=== PATIENT | female | born 1960 | race Caucasian/White ===

== ENCOUNTER 2016-07-19 00:48 | Emergency (ER) | payer MEDICARE ==
--- NOTE | 2016-07-19 01:16 | Emergency Department Record ---
History of Present Illness - General Chief Complaint: Knee injury Stated Complaint: RIGHT KNEE INJURY Time Seen by Provider: 07/19/16 01:10 Source: Patient, Family Mode of Arrival: Wheelchair - History of Present Illness Initial Comments: 55 yo female presents with a knee injury. She slipped in the tub about one hour ago landing on her right knee. She lacerated the front of the knee. She denies any other injuries. No head injury or pain. No neck pain or injury. She admits to frequent alcohol consumption and has fallen in the past. MD Complaint: Knee injury Onset/Timin -: Minutes(s) Injury: Knee: Right Type of Injury: Laceration Place: Home Severity: Mild Severity scale (1-10): 5 Improves With: Nothing Worsens With: Nothing Context: Fall Treatments Prior to Arrival: Bandage - Related Data Allergies Allergy/AdvReac Type Severity Reaction Status Date / Time amoxicillin AdvReac Mild YEAST Verified 07/19/16 00:56 INFETION Sulfa (Sulfonamide AdvReac Mild ABDOMINAL Verified 07/19/16 00:56 Antibiotics) CRAMPS Travel Screening - Travel/Exposure Within Last 30 Days Have you traveled within the last 30 days?: No - Travel/Exposure Within Last Year Have you traveled outside the [place] in the last year?: No - Additonal Travel Details Have you been exposed to anyone with a communicable illness?: No - Travel Symptoms Symptom Screening: None Review of Systems Constitutional: Denies: Chills, Fever, Malaise, Weakness Eyes: Denies: Eye discharge ENT: Denies: Congestion Respiratory: Denies: Cough Cardiovascular: Denies: Chest pain, Palpitations, Syncope Endocrine: Denies: Fatigue Gastrointestinal: Denies: Abdominal pain, Diarrhea, Nausea, Vomiting Genitourinary: Denies: Dysuria Musculoskeletal: Reports: Arthralgia. Denies: Back pain, Joint swelling, Myalgia Skin: Reports: Other (Laceration). Denies: Bruising, Change in color, Rash Neurological: Denies: Headache Psychiatric: Denies: Anxiety Hematological/Lymphatic: Denies: Blood Clots, Easy bleeding, Easy bruising, Swollen glands Past Medical History - SOCIAL HISTORY Smoking Status: Current some day smoker Alcohol Use: Heavy Alcohol Use Comment: HALF A FIFTH DAILY Drug Use: Occassional Drug Use Detail:: Marijuana - RESPIRATORY Hx Respiratory Disorders: Yes Hx Bronchitis: Yes - CARDIOVASCULAR Hx Cardio Disorders: No - NEURO Hx Neuro Disorders: No - GI Hx GI Disorders: No - Hx Genitourinary Disorders: No - ENDOCRINE Hx Endocrine Disorders: Yes Hx Thyroid Disease: Yes (hypo) - MUSCULOSKELETAL Hx Musculoskeletal Disorders: Yes Hx Musculoskeletal Disease: Yes (sharco naya tooth) - PSYCH Hx Psych Problems: No - HEMATOLOGY/ONCOLOGY Hx Hematology/Oncology Disorders: No Family Medical History Any Significant Family History?: No Physical Exam - General General Appearance: Alert, Oriented x3, Cooperative, No acute distress Limitations: No limitations - Head Head exam: Atraumatic, Normocephalic, Normal inspection Head exam detail: negative: Abrasion, Contusion, Hematoma, Laceration - Eye Eye exam: Normal appearance. negative: Conjunctival injection, Periorbital swelling, Scleral icterus - ENT ENT exam: Normal exam, Mucous membranes moist, Normal external ear exam, Normal orophraynx Ear exam: Normal external inspection. negative: External canal tenderness Nasal Exam: Normal inspection. negative: Discharge, Sinus tenderness Mouth exam: Normal external inspection, Tongue normal Teeth exam: Normal inspection. negative: Dental caries Throat exam: Normal inspection. negative: Tonsillar erythema, Tonsillar exudate - Neck Neck exam: Normal inspection, Full ROM. negative: Tenderness - Respiratory Respiratory exam: Normal lung sounds bilaterally. negative: Respiratory distress - Cardiovascular Cardiovascular Exam: Regular rate, Normal rhythm, Normal heart sounds - GI/Abdominal GI/Abdominal exam: Soft. negative: Guarding, Hypoactive bowel sounds, Rebound, Rigid, Tenderness - Rectal Rectal exam: Deferred - exam: Deferred - Extremities Extremities exam: Full ROM, Normal capillary refill, Tenderness. negative: Normal inspection, Joint swelling, Pedal edema Image of Full Body: 1 - right knee laceration, 2cm, no visible FB, patella midline and full ROM, no joint tenderness. - Neurological Neurological exam: Alert, Normal gait, Oriented X3 - Psychiatric Psychiatric exam: Normal affect, Normal mood. negative: Agitated, Anxious - Skin Skin exam: Dry, Normal color, Warm. negative: Intact Type of lesion: Laceration (2cm knee laceration) Course Vital Signs 07/19/16 00:57 Temperature 97.6 F Pulse Rate 73 Respiratory 18 Rate Blood Pressure 91/54 Pulse Ox 95 - Reevaluation(s) Reevaluation #1: The knee XR was reviewed No acute fracture or dislocation noted NO FB noted PROCEDURE: Betadine Prep Irrigation with NS copiously Lidocaine with Epi 1% 2ml local Irrigated again. superficial flap type wound. No FB, no bone or tendon visible Ethilon 4-0 suture 5 sutures placed Tolerated Well 07/19/16 01:53 Disposition Disposition: Discharge Clinical Impression: Laceration of Knee Qualifiers: Encounter type: initial encounter Laterality: right Qualified Code(s): S81.011A - Laceration without foreign body, right knee, initial encounter Disposition: Home, Self-Care Condition: (1) Good Instructions: Suture Care (ED), Laceration (ED) Additional Instructions: Return immediately if you have fever, redness, pus, pain or concerns Suture removal in 10 days in the ER or your doctors office Forms: Patient Portal Access Time of Disposition: 01:56
--- NOTE | 2016-07-21 15:05 | RADIOLOGY REPORT ---
EXAM: KNEE, RIGHT 4 VIEWS HISTORY: FALL WITH ANTERIOR LACERATION. TECHNIQUE: AP, oblique, lateral, and tunnel views of the right knee are obtained. COMPARISON: None. ENCOUNTER: Initial. FINDINGS: There is borderline to mild diffuse osteopenia. No acute fracture, dislocation, or destructive bone lesion is seen. There are early tricompartmental degenerative changes. No definite joint effusion. Mild prepatellar soft tissue swelling. No radiopaque foreign body. IMPRESSION: 1. BORDERLINE TO MILD OSTEOPENIA. NO ACUTE FRACTURE OR DISLOCATION. 2. MILD TRICOMPARTMENTAL DEGENERATIVE CHANGES. 3. MILD PREPATELLAR SOFT TISSUE SWELLING. JOB NUMBER: [id number] MTDD
== END 2016-07-19 02:02 | disposition home or self-care (01) ==
LOC: ER 00:48
DX: S81.011A Laceration without foreign body, right knee, initial encounter (principal); W18.2XXA Fall in (into) shower or empty bathtub, initial encounter; Y92.009 Unspecified place in unspecified non-institutional (private) residence as the place of occurrence of the external cause; Y92.002 Bathroom of unspecified non-institutional (private) residence as the place of occurrence of the external cause; Z91.81 History of falling
CPT/HCPCS: 12001; 99283; 99284

== ENCOUNTER 2017-01-30 12:57 | Inpatient (IN) | payer MEDICARE ==
--- NOTE | 2017-01-30 14:48 | Emergency Department Record ---
History of Present Illness - General Chief Complaint: Abdominal Pain Stated Complaint: ABDOMEN PAIN WITH LOWER BACK AND SIDE PAIN Time Seen by Provider: 01/30/17 13:51 Mode of Arrival: Ambulatory - History of Present Illness Initial Comments: 4 days ago vomiting ,No hematemsis and abdominal pain with eating. History of alcohol abuse and last BM formed. No alcohol for 2.5 days. Drinks one pint per day. Onset/Timin -: Days(s) Location: Diffuse Radiation: Back Severity: Moderate Quality: Aching Consistency: Constant Improves With: Nothing Worsens With: Nothing Context: Other Associated Symptoms: Denies other symptoms Treatments Prior to Arrival: NSAIDs - Related Data Allergies Allergy/AdvReac Type Severity Reaction Status Date / Time amoxicillin AdvReac Mild YEAST Verified 07/19/16 00:56 INFETION Sulfa (Sulfonamide AdvReac Mild ABDOMINAL Verified 07/19/16 00:56 Antibiotics) CRAMPS Travel Screening - Travel/Exposure Within Last 30 Days Have you traveled within the last 30 days?: No - Travel/Exposure Within Last Year Have you traveled outside the [place] in the last year?: No - Additonal Travel Details Have you been exposed to anyone with a communicable illness?: No - Travel Symptoms Symptom Screening: None Review of Systems Reviewed: No additional complaints except as noted below Constitutional: Reports: As per HPI. Denies: Chills, Fever, Malaise, Night sweats, Weakness, Weight change Eyes: Reports: As per HPI. Denies: Eye discharge, Eye pain, Photophobia, Vision change ENT: Reports: As per HPI. Denies: Congestion, Dental pain, Ear pain, Epistaxis , Hearing loss, Throat pain Respiratory: Reports: As per HPI. Denies: Cough, Dyspnea, Hemoptysis, Stridor, Wheezes Cardiovascular: Reports: As per HPI. Denies: Arrhythmia, Chest pain, Dyspnea on exertion, Edema, Murmurs, Orthopnea, Palpitations, Paroxysmal nocturnal dyspnea, Rheumatic Fever, Syncope Endocrine: Reports: As per HPI. Denies: Fatigue, Heat or cold intolerance, Polydipsia, Polyuria Gastrointestinal: Reports: As per HPI, Abdominal pain, Vomiting. Denies: Constipation, Diarrhea, Hematemesis, Hematochezia, Melena, Nausea Genitourinary: Reports: As per HPI. Denies: Abnormal menses, Discharge, Dyspareunia, Dysuria, Frequency, Hematuria, Incontinence, Retention, Urgency Musculoskeletal: Reports: As per HPI. Denies: Arthralgia, Back pain, Gout, Joint swelling, Myalgia, Neck pain Skin: Reports: As per HPI. Denies: Bruising, Change in color, Change in hair/ nails, Lesions, Pruritus, Rash Neurological: Reports: As per HPI. Denies: Abnormal gait, Confusion, Headache, Numbness, Paresthesias, Seizure, Tingling, Tremors, Vertigo, Weakness Psychiatric: Reports: As per HPI. Denies: Anxiety, Auditory hallucinations, Depression, Homicidal thoughts, Suicidal thoughts, Visual hallucinations Hematological/Lymphatic: Reports: As per HPI. Denies: Anemia, Blood Clots, Easy bleeding, Easy bruising, Swollen glands Past Medical History - SOCIAL HISTORY Smoking Status: Current some day smoker Alcohol Use: Heavy Alcohol Use Comment: pint of vodka daily Drug Use: Occasional Drug Use Detail:: Marijuana - RESPIRATORY Hx Respiratory Disorders: Yes Hx Bronchitis: Yes - CARDIOVASCULAR Hx Cardio Disorders: No - NEURO Hx Neuro Disorders: No - GI Hx GI Disorders: No - Hx Genitourinary Disorders: No - ENDOCRINE Hx Endocrine Disorders: Yes Hx Thyroid Disease: Yes (hypo) - MUSCULOSKELETAL Hx Musculoskeletal Disorders: Yes Hx Musculoskeletal Disease: Yes (sharco naya tooth) - PSYCH Hx Psych Problems: No - HEMATOLOGY/ONCOLOGY Hx Hematology/Oncology Disorders: No Family Medical History Any Significant Family History?: No Physical Exam - General General Appearance: Alert, Oriented x3, Cooperative, No acute distress - Head Head exam: Normal inspection - Eye Eye exam: Normal appearance, PERRL Pupils: Normal accommodation - ENT ENT exam: Normal exam, Mucous membranes moist, Normal external ear exam, Normal orophraynx, TM's normal bilaterally Ear exam: Normal external inspection. negative: External canal tenderness Nasal Exam: Normal inspection. negative: Discharge, Sinus tenderness Mouth exam: Normal external inspection, Tongue normal Teeth exam: Normal inspection. negative: Dental caries Throat exam: Normal inspection. negative: Tonsillar erythema, Tonsillar exudate - Neck Neck exam: Normal inspection, Full ROM. negative: Tenderness - Respiratory Respiratory exam: Normal lung sounds bilaterally. negative: Respiratory distress - Cardiovascular Cardiovascular Exam: Regular rate, Normal rhythm, Normal heart sounds - GI/Abdominal GI/Abdominal exam: Soft, Normal bowel sounds, Tenderness (generalized abd pain soft abd.). negative: Guarding, Rebound, Rigid - Rectal Rectal exam: Deferred - exam: Deferred - Extremities Extremities exam: Normal inspection, Full ROM, Normal capillary refill. negative: Tenderness - Back Back exam: Reports: Normal inspection, Full ROM. Denies: Muscle spasm, Rash noted, Tenderness - Neurological Neurological exam: Alert, Normal gait, Oriented X3, Reflexes normal - Psychiatric Psychiatric exam: Normal affect, Normal mood - Skin Skin exam: Dry, Intact, Normal color, Warm Course Vital Signs 01/30/17 01/30/17 13:13 14:04 Temperature 99.0 F 99.0 F Pulse Rate [ 111 H Pulse Ox Probe] Respiratory 14 14 Rate Blood Pressure 119/80 [Left Arm] Pulse Ox 98 98 - Reevaluation(s) Reevaluation #1: discussed case with Nathan and will admit 01/30/17 17:15 Medical Decision Making - Lab Data Result diagrams: 01/30/17 14:40 01/30/17 14:40 Disposition Clinical Impression: Hypokalemia, Alcohol abuse Pancreatitis Qualifiers: Chronicity: acute Pancreatitis type: alcohol induced Acute pancreatitis complication: unspecified Qualified Code(s): K85.20 - Alcohol induced acute pancreatitis without necrosis or infection Decision to Admit: Admit from ER Forms: Patient Portal Access Time of Disposition: 17:20 Quality - Quality Measures Quality Measures: N/A - Blood Pressure Screening Blood Pressure Classification: Pre-Hypertensive BP Reading Systolic Measurement: 119 Diastolic Measurement: 85 Screening for High Blood Pressure: < Pre-Hypertensive BP, F/U Documented > [ [id number]] Pre-Hypertensive Follow-up Interventions: Referral to alternative/primary care provider.
[2017-01-30 15:33] LABS: BASO % 0.4 % (0-6); EOS % 2.9 % (0-6); GRAN % 68.7 % (47-80); HEMATOCRIT 33.3 % (35.0-47.0); HEMOGLOBIN 11.5 gm/dl (11.6-16.0); LYMPH % 13.3 % (16-45); MEAN CORPUSCULAR HGB CONC 34.5 g/dl (32-36); MEAN PLATELET VOLUME 11.5 fl (7.4-10.4); MONO % 14.7 % (0-9); PLATELET COUNT 115 K/uL (130-400); RED BLOOD COUNT 2.69 M/uL (3.80-5.40); WHITE BLOOD COUNT W/O DIFF 5.6 K/uL (4.2-12.2)
[2017-01-30 15:43] LABS: MEAN CORPUSCULAR HEMOGLOBIN 42.7 pg (27-33)
[2017-01-30 15:48] LABS: URINE APPEARANCE CLEAR; URINE BILIRUBIN SMALL (NEGATIVE); URINE BLOOD NEGATIVE (NEGATIVE); URINE GLUCOSE (UA) NEGATIVE (NEGATIVE); URINE KETONE TRACE (NEGATIVE); URINE LEUKOCYTE ESTERASE NEGATIVE (NEGATIVE); URINE NITRITE NEGATIVE (NEGATIVE); URINE PROTEIN TRACE (NEGATIVE)
[2017-01-30 15:50] LABS: ALKALINE PHOSPHATASE 122 U/L (38-126); ALT/SGPT 46 U/L (9-52); ANION GAP 12.8 (7-16); AST/SGOT 73 U/L (14-36); BILIRUBIN,TOTAL 1.27 mg/dL (0.2-1.3); BLOOD UREA NITROGEN 9 mg/dL (7-17); CARBON DIOXIDE 29.2 mmol/L (22-30); CREATININE 0.4 mg/dL (0.52-1.04); EST GLOMERULAR FILTRATION RATE > 60 ml/min; GLUCOSE,RANDOM 114 mg/dL (70-110); INR 1.08; MEAN CELL VOLUME 123.8 fl (81-97); PROTHROMBIN TIME (PATIENT) 11.7 SECONDS (9.5-12.1); TOTAL PROTEIN 7.2 gm/dL (6.3-8.2)
[2017-01-30 15:53] LABS: URINE COLOR DARK YELLOW
[2017-01-30 16:29] LABS: LIPASE 4680 U/L (23-300)
[2017-01-30] MEDS ORDERED: POTASSIUM CHLORIDE 20 MEQ TABLET PO ONE (17:03)
[2017-01-30] MEDS ORDERED: 0.9 % SODIUM CHLORIDE 1000ML 1,000 ML IV SCH (17:15)
[2017-01-30] MEDS ORDERED: HYDROMORPHONE HCL 1 MG/ML CPJ IVP ONE (17:19)
[2017-01-30] MEDS: HYDROMORPHONE HCL 1 MG/ML CPJ IVP PRN (21:59)
[2017-01-30] MEDS: POTASSIUM CHLORIDE 20 MEQ TABLET PO SCH (22:01)
[2017-01-30] MEDS ORDERED: DIPHENHYDRAMINE HCL 25 MG CAPSULE PO ONE (23:28)
[2017-01-30] MEDS: 0.9 % SODIUM CHLORIDE 1000ML 1,000 ML IV PRN (23:40)
[2017-01-31] MEDS ORDERED: PNEUM 23-VAL ADULT IM ONE (00:21)
[2017-01-31 06:22] LABS: ANION GAP 8.5 (7-16); BLOOD UREA NITROGEN 9 mg/dL (7-17); CARBON DIOXIDE 25.5 mmol/L (22-30); CREATININE 0.4 mg/dL (0.52-1.04); EST GLOMERULAR FILTRATION RATE > 60 ml/min; GLUCOSE,RANDOM 103 mg/dL (70-110); LIPASE 1462 U/L (23-300)
[2017-01-31] MEDS: HYDROMORPHONE HCL 1 MG/ML CPJ IVP PRN (06:22)
[2017-01-31] MEDS: 0.9 % SODIUM CHLORIDE 1000ML 1,000 ML IV PRN ×3 (06:25→21:41)
--- NOTE | 2017-01-31 07:27 | CT SCAN REPORT ---
EXAM: CT SCAN OF THE ABDOMEN AND PELVIS HISTORY: PATIENT HAS GENERALIZED ABDOMINAL PAIN AND BLOATING. TECHNIQUE: Serial axial CT scan of the abdomen and pelvis was performed at 3.75 mm intervals from the dome of the diaphragm down to the pubic symphysis without use of intravenous or oral contrast. No comparison CT's are available. FINDINGS: The lung windows of the lung bases demonstrate no CT evidence of focal infiltrate or pleural effusion. Emphysematous changes are identified. The visualized heart size and contour is within normal limits. The liver demonstrates macronodular surface contour with diffuse fatty infiltration. These findings are consistent with cirrhosis. Clinical correlation is recommended. No focal hepatic lesions are identified. The spleen, adrenal glands, and gallbladder are unremarkable. The pancreas demonstrates moderate peripancreatic fat standing. There are punctate calcifications identified within the distal tail of the pancreas as well as the pancreatic head. These findings are consistent with acute on chronic pancreatitis. The bilateral kidneys demonstrate no CT evidence of hydronephrosis or hydroureter. No renal or ureteral calculi are noted. The contour and caliber of the noncontrast mid abdominal aorta is within normal limits. There is no CT evidence of retroperitoneal, pelvic or inguinal lymphadenopathy. The bowel gas pattern is nonspecific and nonobstructive. The appendix is clearly visualized and there is no CT evidence of appendicitis. There is no CT evidence of free intraperitoneal air or free intraperitoneal fluid. The urinary bladder is unremarkable. The uterus is unremarkable. Bone windows demonstrate no CT evidence of a fracture or dislocation of the visualized osseous structures. There is sclerosis of the superior aspect of the right femoral head without evidence of collapse. These findings are suspicious for avascular necrosis of the superior aspect of the right femoral head. If there is further clinical concern then MRI of the right hip can be obtained for further evaluation. IMPRESSION: 1. FINDINGS CONSISTENT WITH ACUTE ON CHRONIC MODERATE PANCREATITIS. 2. CIRRHOSIS WITH DIFFUSE HEPATIC STEATOSIS. NO SUSPICIOUS HEPATIC LESIONS ARE IDENTIFIED. 3. 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 IF THERE IS FURTHER CLINICAL CONCERN THEN MRI OF THE RIGHT HIP CAN BE OBTAINED FOR FURTHER EVALUATION. JOB NUMBER: [id number] MTDD
[2017-01-31] MEDS ORDERED: DIPHENHYDRAMINE HCL 25 MG CAPSULE PO ONE ×2 (07:29→10:30)
[2017-01-31] MEDS ORDERED: MORPHINE SULFATE 5 MG/ML PFS IVP PRN (07:32)
[2017-01-31] MEDS: POTASSIUM CHLORIDE 20 MEQ TABLET PO SCH ×2 (09:18→21:37)
[2017-01-31] MEDS: ENOXAPARIN 40 MG/0.4 ML SYR SC SCH (09:21)
[2017-01-31] MEDS: MORPHINE SULFATE 5 MG/ML PFS IVP PRN ×3 (10:22→21:38)
--- NOTE | 2017-01-31 11:25 | History & Physical ---
History of Present Illness - Date of Service Date of Service for History & Physical: 01/31/17 - History of Present Illness Admitting Diagnosis: acute pancreatitis. hypokalemia. alcohol abuse History of Present Illness: 56 y/o female with 4 day history of vomiting admitted for acute pancreatitis. Past medical history of current every day smoker, heavy alcohol use ( 1 pint 5 O 'clock vodka daily), bronchitis, hypothyroidism, Zdzgrlu-Wyabw-Jdhkk disease. Prior to arrival had 4 day history of nausea, vomiting and epigastric abdominal pain. Denied hematemesis, diarrhea, rectal bleeding. Quit drinking for 2 days which did not resolve her symptoms. Does report day 1 of alcohol abstinence she felt tachycardic and was shaky but has not had any withdrawal symptoms since. While in the ED VS stable with slight tachycardia. CBC with a macrocytic anemia , plt 115, normal WBC. Coag studies normal. Potassium 2.7 in ED Lipase 4680. AST 73. U/A trace protein, + ketones, small bilirubin. EKG ectopic atrial tachycardia prolonged QT interval, retrograde P wave, no acute changes from previous. CT abdomen/pelvis consistent with acute and chronic moderate pancreatitis, cirrhosis with diffuse hepatic steatosis, avascular necrosis of right femoral head. Laboratory Results WBC 5.6 K/uL (4.2-12.2) 01/30/17 14:40 RBC 2.69 M/uL (3.80-5.40) L 01/30/17 14:40 Hgb 11.5 gm/dl (11.6-16.0) L 01/30/17 14:40 Hct 33.3 % (35.0-47.0) L 01/30/17 14:40 MCV 123.8 fl (81-97) H 01/30/17 14:40 MCH 42.7 pg (27-33) H 01/30/17 14:40 MCHC 34.5 g/dl (32-36) 01/30/17 14:40 RDW 15.0 % (11.5-14.5) H 01/30/17 14:40 Plt Count 115 K/uL (130-400) L 01/30/17 14:40 MPV 11.5 fl (7.4-10.4) H 01/30/17 14:40 Gran % 68.7 % (47-80) 01/30/17 14:40 Lymphocytes % 13.3 % (16-45) L 01/30/17 14:40 Monocytes % 14.7 % (0-9) H 01/30/17 14:40 Eosinophils % 2.9 % (0-6) 01/30/17 14:40 Basophils % 0.4 % (0-6) 01/30/17 14:40 PT 11.7 SECONDS (9.5-12.1) 01/30/17 14:40 INR 1.08 01/30/17 14:40 Sodium 137 mmol/L (136-145) 01/31/17 06:05 Potassium 3.1 mmol/L (3.5-5.1) L 01/31/17 06:05 Chloride 103 mmol/L (98-107) 01/31/17 06:05 Carbon Dioxide 25.5 mmol/L (22-30) 01/31/17 06:05 Anion Gap 8.5 (7-16) 01/31/17 06:05 BUN 9 mg/dL (7-17) 01/31/17 06:05 Creatinine 0.4 mg/dL (0.52-1.04) L 01/31/17 06:05 Estimated GFR > 60 ml/min 01/31/17 06:05 Random Glucose 103 mg/dL (70-110) 01/31/17 06:05 Calcium 7.6 mg/dL (8.5-10.1) L 01/31/17 06:05 Total Bilirubin 1.27 mg/dL (0.2-1.3) 01/30/17 14:40 Direct Bilirubin 0.0 mg/dL (0-0.3) 01/30/17 14:40 AST 73 U/L (14-36) H 01/30/17 14:40 ALT 46 U/L (9-52) 01/30/17 14:40 Alkaline Phosphatase 122 U/L (38-126) 01/30/17 14:40 Total Protein 7.2 gm/dL (6.3-8.2) 01/30/17 14:40 Albumin 4.0 gm/dL (3.5-5.0) 01/30/17 14:40 Lipase 1462 U/L (23-300) H 01/31/17 06:05 Urine Color Dark yellow 01/30/17 14:40 Urine Appearance Clear 01/30/17 14:40 Urine pH 6.0 (5.0-8.0) 01/30/17 14:40 Ur Specific [place] 1.020 (1.002-1.030) 01/30/17 14:40 Urine Protein Trace (NEGATIVE) H 01/30/17 14:40 Urine Glucose (UA) Negative (NEGATIVE) 01/30/17 14:40 Urine Ketones Trace (NEGATIVE) H 01/30/17 14:40 Urine Blood Negative (NEGATIVE) 01/30/17 14:40 Urine Nitrite Negative (NEGATIVE) 01/30/17 14:40 Urine Bilirubin Small (NEGATIVE) H 01/30/17 14:40 Urine Urobilinogen 2.0 E.U./dL (0.20 - 1.00) H 01/30/17 14:40 Ur Leukocyte Esterase Negative (NEGATIVE) 01/30/17 14:40 Vital Signs - Last 24 Hrs Temp Pulse Pulse Resp BP BP Pulse Ox 01/31/17 09:08 99.5 F 86 16 91/59 90/62 96 01/31/17 09:00 86 16 01/31/17 06:00 99.5 F 91 H 18 91/59 98 01/31/17 01:58 98.8 F 90 18 93/72 95 01/30/17 22:00 99.5 F 98 H 18 97/63 96 01/30/17 19:23 16 01/30/17 18:08 109 H 20 105/80 97 01/30/17 18:00 98.9 F 101 H 16 113/70 98 01/30/17 15:39 115 H 18 119/85 97 01/30/17 14:04 99.0 F 14 98 01/30/17 13:13 99.0 F 111 H 14 119/80 98 01/31/17- resting in bed comfortably, denies nausea, tremors, diarrhea, agitation , anxiety. Does report still has LUQ abdominal pain but has significantly improved since admission. Reports has been itching with Dilaudid, Benadryl effective and pain control changed to Morphine Sulfate. Usually takes vitamin at home " when I remember". Reports is home on disability, lives alone and "ties one on and has a 1 person constitution party". Has not seen a PCP in > 5 years. PCP: none, is planning on applying to establish with Dr Mayorga after discharge Travel Screening - Travel/Exposure Within Last 30 Days Have you traveled within the last 30 days?: No - Travel/Exposure Within Last Year Have you traveled outside the [place] in the last year?: No - Additonal Travel Details Have you been exposed to anyone with a communicable illness?: No - Travel Symptoms Symptom Screening: None Review of Systems Constitutional: Reports: As per HPI. Denies: Chills, Fever, Malaise, Night sweats, Weakness, Weight change Eyes: Reports: As per HPI. Denies: Eye discharge, Eye pain, Photophobia, Vision change ENT: Reports: As per HPI. Denies: Congestion, Dental pain, Ear pain, Epistaxis , Hearing loss, Throat pain Respiratory: Reports: As per HPI. Denies: Cough, Dyspnea, Hemoptysis, Stridor, Wheezes Cardiovascular: Reports: As per HPI. Denies: Arrhythmia, Chest pain, Dyspnea on exertion, Edema, Murmurs, Orthopnea, Palpitations, Paroxysmal nocturnal dyspnea, Rheumatic Fever, Syncope Endocrine: Reports: As per HPI. Denies: Fatigue, Heat or cold intolerance, Polydipsia, Polyuria Gastrointestinal: Reports: As per HPI, Abdominal pain, Vomiting. Denies: Constipation, Diarrhea, Hematemesis, Hematochezia, Melena, Nausea Genitourinary: Reports: As per HPI. Denies: Abnormal menses, Discharge, Dyspareunia, Dysuria, Frequency, Hematuria, Incontinence, Retention, Urgency Musculoskeletal: Reports: As per HPI. Denies: Arthralgia, Back pain, Gout, Joint swelling, Myalgia, Neck pain Skin: Reports: As per HPI. Denies: Bruising, Change in color, Change in hair/ nails, Lesions, Pruritus, Rash Neurological: Reports: As per HPI. Denies: Abnormal gait, Confusion, Headache, Numbness, Paresthesias, Seizure, Tingling, Tremors, Vertigo, Weakness Psychiatric: Reports: As per HPI. Denies: Anxiety, Auditory hallucinations, Depression, Homicidal thoughts, Suicidal thoughts, Visual hallucinations Hematological/Lymphatic: Reports: As per HPI. Denies: Anemia, Blood Clots, Easy bleeding, Easy bruising, Swollen glands Past Medical History - SOCIAL HISTORY Smoking Status: Current some day smoker - RESPIRATORY Hx Respiratory Disorders: Yes Hx Bronchitis: Yes Hx COPD: Yes - CARDIOVASCULAR Hx Cardio Disorders: No Hx Hypotension: (in past) - NEURO Hx Neuro Disorders: No - GI Hx GI Disorders: No Hx Irritable Bowel: Yes Hx Pancreatitis: No Hx Wt Loss/Wt Gain: Yes Comment:: 14lbs /month - Hx Genitourinary Disorders: No - ENDOCRINE Hx Endocrine Disorders: Yes Hx Thyroid Disease: Yes (hypo) Comment:: states needs medication/inbtw doctor - MUSCULOSKELETAL Hx Musculoskeletal Disorders: Yes Hx Arthritis: Yes Hx Musculoskeletal Disease: Yes (sharco naya tooth) Comment:: numbness/tingling rle to mid thigh - PSYCH Hx Psych Problems: No Hx Anxiety: No Hx Behavior Problems: No Hx Depression: No - HEMATOLOGY/ONCOLOGY Hx Hematology/Oncology Disorders: No Hx Clotting Problems: Yes Family Medical History Any Significant Family History?: Yes Hx Stroke: Mother H&P Meds/Allergies - Allergies Allergies: Allergies Allergy/AdvReac Type Severity Reaction Status Date / Time amoxicillin AdvReac Mild YEAST Verified 07/19/16 00:56 INFETION Sulfa (Sulfonamide AdvReac Mild ABDOMINAL Verified 07/19/16 00:56 Antibiotics) CRAMPS - Home Medications Home Medications Medication Instructions Recorded Confirmed Last Taken [place]-3 Fatty Acids/Fish Oil [Fish 1 tab PO DAILY 01/30/17 01/30/17 Unknown Oil 1,000 mg Capsule] Potassium Chloride [Klor-Con] 10 meq PO BID 01/30/17 01/30/17 Unknown - Active Medications Active Medications: Current Medications Diphenhydramine HCl (Benadryl Capsule) 50 mg PO Q4H PRN PRN Reason: ITCHING Enoxaparin Sodium (Lovenox) 40 mg SC DAILY NOEMY Last Admin: 01/31/17 09:21 Dose: 40 mg Sodium Chloride () 1,000 mls @ 0 mls/hr IV .Q0M NOEMY PRN Reason: Wide Open Last Admin: 01/30/17 17:10 Dose: 1,000 mls/hr Sodium Chloride () 1,000 mls @ 150 mls/hr IV .Q6H40M PRN PRN Reason: LARGE VOLUME IV Last Admin: 01/31/17 06:25 Dose: 150 mls/hr Morphine Sulfate (Morphine Sulfate) 2.5 mg IVP Q4HR PRN PRN Reason: Pain - Moderate (5-7) Stop: 02/07/17 07:33 Last Admin: 01/31/17 10:22 Dose: 2.5 mg Morphine Sulfate (Morphine Sulfate) 2.5 mg IVP Q2HR PRN PRN Reason: Pain - Severe (8-10) Stop: 02/07/17 07:33 Potassium Chloride (Klor-Con) 20 meq PO BID NOEMY Last Admin: 01/31/17 09:18 Dose: 20 meq Physical Exam - Vital Signs Vital Signs: Vital Signs - Last 24 Hrs Temp Pulse Resp BP BP Pulse Ox 01/31/17 09:08 99.5 F 86 16 91/59 90/62 96 01/31/17 09:00 86 16 01/31/17 06:00 99.5 F 91 H 18 91/59 98 01/31/17 01:58 98.8 F 90 18 93/72 95 01/30/17 22:00 99.5 F 98 H 18 97/63 96 01/30/17 19:23 16 - General General Appearance: Alert, Oriented x3, Cooperative, No acute distress, Other ( cachectic) - Head Head exam: Normal inspection - Eye Eye exam: Normal appearance, PERRL Pupils: Normal accommodation - ENT ENT exam: Normal exam, Mucous membranes moist, Normal external ear exam, Normal orophraynx, TM's normal bilaterally Ear exam: Normal external inspection. negative: External canal tenderness Nasal Exam: Normal inspection. negative: Discharge, Sinus tenderness Mouth exam: Normal external inspection, Tongue normal Teeth exam: Normal inspection. negative: Dental caries Throat exam: Normal inspection. negative: Tonsillar erythema, Tonsillar exudate - Neck Neck exam: Normal inspection, Full ROM. negative: Tenderness - Respiratory Respiratory exam: Normal lung sounds bilaterally. negative: Respiratory distress - Cardiovascular Cardiovascular Exam: Regular rate, Normal rhythm, Normal heart sounds Peripheral Pulses: 2+: Dorsalis Pedis (R), Dorsalis Pedis (L) - GI/Abdominal GI/Abdominal exam: Soft, Normal bowel sounds, Tenderness (LUQ tenderness with palpation, soft, normoactive). negative: Guarding, Rebound, Rigid - Rectal Rectal exam: Deferred - exam: Deferred - Extremities Extremities exam: Normal inspection, Full ROM, Normal capillary refill. negative: Tenderness - Back Back exam: Reports: Normal inspection, Full ROM. Denies: Muscle spasm, Rash noted, Tenderness - Neurological Neurological exam: Alert, Normal gait, Oriented X3, Reflexes normal - Psychiatric Psychiatric exam: Normal affect, Normal mood - Skin Skin exam: Dry, Intact, Normal color, Warm Results - Labs Result Diagrams: 01/30/17 14:40 01/31/17 06:05 Labs Last 24 Hours: Laboratory Results - last 24 hr 01/31/17 06:05 Sodium 137 Potassium 3.1 L Chloride 103 Carbon Dioxide 25.5 Anion Gap 8.5 BUN 9 Creatinine 0.4 L Estimated GFR > 60 Random Glucose 103 Calcium 7.6 L Lipase 1462 H - Imaging and Cardiology CT scan - abdomen Status: Report reviewed (1- acute and chronic moderate pancreatitis, 2- cirrhosis with diffuse hepatic steatosis, 3- avascular necrosis right femoral head) VTE H&P Assessment - Risk for VTE Risk for VTE: Yes Risk Level: Moderate Risk Assessment Date: 01/31/17 Risk Assessment Time: 11:59 VTE Orders Placed or Will Be Placed: Yes Plan - Inpatient Certification Inpatient Certification: Admit to inpatient care: Based on my medical assessment, after consideration of patient's risk factors (age, co-morbidities and patient presenting symptoms and acuity), I expect that this patient will remain in the hospital greater than or equal to two midnights and that the services needed warrant inpatient care because: Patient Risk Factors: [] Estimated length of stay: [] The patient may reasonably be expected to be discharged or transferred to a hospital within 96 hours after admission to [facility]. Services needed: [] Post hospital care (if known): [] I certify that my determination is in accordance with my understanding of Medicare requirements for reasonable and necessary inpatient services. - Detailed Diagnosis and Plan (1) Pancreatitis Current Visit: Yes Status: Acute Qualifiers: Chronicity: acute Pancreatitis type: alcohol induced Acute pancreatitis complication: unspecified Qualified Code(s): K85.20 - Alcohol induced acute pancreatitis without necrosis or infection Base Code: K85.90 - ACUTE PANCREATITIS WITHOUT NECROSIS OR INFECTION, UNSP Comment: 01/31/17- 56 y/o female admitted with acute pancreatitis. Chronic daily alcohol intake of 1 pint vodka. Lipase in ED 4680 decreased to [address] abdomen/pelvis acute and chronic pancreatitis, + cirrhosis, AVN right femoral head (symptomatic). VSS. EKG unchanged from previous. No S/S DT. WBC normal, + macrocytic anemia, AST 73. - CIWA scale q shift - 0.9% NS @ 100ml/hr - NPO except for ice chips, may advance diet as pain improves - pain control with Morphine Sulfate 2.5mg Q 2-4 hr PRN (did not tolerate Dilaudid) - antiemetic - telemetry NSR, normal QT interval<.012 - she has verbalized she is not going to resume drinking once she has returned home - advised she establish with Dr Mayorga, or PCP of choice [facility]NY after discharge - Thiamine, folate, Vitamin B12 today (2) Alcohol abuse Current Visit: Yes Status: Acute Base Code: F10.10 - ALCOHOL ABUSE, UNCOMPLICATED Comment: 01/31/17- 56 y/o female admitted with acute pancreatitis. Chronic daily alcohol intake of 1 pint vodka. Lipase in ED 4680 decreased to 1462 this am. VSS. Coags normal. EKG unchanged from previous. No S/ S DT. WBC normal, + macrocytic anemia, AST 73. - CIWA scale q shift - 0.9% NS @ 100ml/hr - NPO except for ice chips, may advance diet as pain improves - pain control with Morphine Sulfate 2.5mg Q 2-4 hr PRN (did not tolerate Dilaudid) - antiemetic - she has verbalized she is not going to resume drinking once she has returned home - advised she establish with Dr Mayorga, or PCP of choice [facility] after discharge - Thiamine, folate, Vitamin B12 today (3) Hypokalemia Current Visit: Yes Status: Acute Base Code: E87.6 - HYPOKALEMIA Comment: - Potassium in ED 2.7, given K-Dur 40mEq in ED, potassium 3.1 this am - recheck serum potassium 1400 today - K-dur 20mEq PO BID - CMP am (4) DVT prophylaxis Current Visit: Yes Status: Acute Base Code: [id number] - Comment: 01/31/17- Lovenox 40mg QD, nursing to encourage frequent ambulation (5) Full code status Current Visit: Yes Status: Acute Base Code: Z78.9 - OTHER SPECIFIED HEALTH STATUS Comment: 01/31/17- will remain full code during this hospitalization
[2017-01-31] MEDS: DIPHENHYDRAMINE HCL 25 MG CAPSULE PO PRN ×2 (14:55→21:40)
[2017-01-31] MEDS ORDERED: POTASSIUM CHLORIDE 20 MEQ TABLET PO ONE (15:46)
[2017-02-01] MEDS: MORPHINE SULFATE 5 MG/ML PFS IVP PRN (02:00)
[2017-02-01] MEDS: DIPHENHYDRAMINE HCL 25 MG CAPSULE PO PRN (02:03)
[2017-02-01] MEDS: 0.9 % SODIUM CHLORIDE 1000ML 1,000 ML IV PRN ×2 (04:30→15:05)
[2017-02-01 06:42] LABS: ALBUMIN 2.6 gm/dL (3.5-5.0); ALKALINE PHOSPHATASE 94 U/L (38-126); ALT/SGPT 44 U/L (9-52); ANION GAP 10.9 (7-16); AST/SGOT 53 U/L (14-36); BILIRUBIN,TOTAL 0.95 mg/dL (0.2-1.3); BLOOD UREA NITROGEN 9 mg/dL (7-17); CARBON DIOXIDE 19.1 mmol/L (22-30); CREATININE 0.4 mg/dL (0.52-1.04); EST GLOMERULAR FILTRATION RATE > 60 ml/min; GLUCOSE,RANDOM 93 mg/dL (70-110); TOTAL PROTEIN 5.2 gm/dL (6.3-8.2)
[2017-02-01 07:32] LABS: BASO % 0.5 % (0-6); EOS % 6.4 % (0-6); GRAN % 58.8 % (47-80); HEMATOCRIT 26.7 % (35.0-47.0); LYMPH % 14.4 % (16-45); MEAN CORPUSCULAR HEMOGLOBIN 42.3 pg (27-33); MEAN PLATELET VOLUME 11.9 fl (7.4-10.4); MONO % 19.9 % (0-9); PLATELET COUNT 125 K/uL (130-400); RED BLOOD COUNT 2.08 M/uL (3.80-5.40); RED CELL DISTRIBUTION WIDTH 14.8 % (11.5-14.5); WHITE BLOOD COUNT W/O DIFF 4.4 K/uL (4.2-12.2)
[2017-02-01 07:42] LABS: HEMOGLOBIN 8.8 gm/dl (11.6-16.0)
[2017-02-01 08:20] LABS: MEAN CELL VOLUME 128.4 fl (81-97)
[2017-02-01] MEDS: CYANOCOBALAMIN (VITAMIN B-12) 100 MCG TABLET PO SCH (09:18)
[2017-02-01] MEDS: POTASSIUM CHLORIDE 20 MEQ TABLET PO SCH ×2 (09:18→21:50)
[2017-02-01] MEDS: THIAMINE MONONITRATE 100 MG TABLET PO SCH (09:18)
[2017-02-01] MEDS: ENOXAPARIN 40 MG/0.4 ML SYR SC SCH (09:18)
[2017-02-01] MEDS ORDERED: HYDROCODONE/APAP 5/325MG TABLET PO PRN (09:58)
--- NOTE | 2017-02-01 10:19 | Physician Progress Note ---
Subjective - Date Date of Physician Progress Note: 02/01/17 - Subjective Subjective Comment: improved today in symptoms of abdominal pain. no nausea or vomitting. started jello this morning and started having a bit of abdominal pain. Objective - Vital Signs Vital Signs: Vital Signs - Last 24 Hrs Temp Pulse Resp BP Pulse Ox 02/01/17 09:24 76 16 89/62 96 02/01/17 05:21 98.9 F 76 16 89/64 93 L 01/31/17 23:40 98.6 F 80 16 92/62 92 L 01/31/17 21:17 99.4 F 77 12 89/60 97 01/31/17 17:20 80 16 89/62 99 01/31/17 14:00 79 16 93/65 99 - General General Appearance: Alert, Oriented x3, Cooperative, No acute distress, Other ( cachectic) - Head Head exam: Normal inspection - Eye Eye exam: Normal appearance, PERRL Pupils: Normal accommodation - ENT ENT exam: Normal exam, Mucous membranes moist, Normal external ear exam, Normal orophraynx, TM's normal bilaterally Ear exam: Normal external inspection. negative: External canal tenderness Nasal Exam: Normal inspection. negative: Discharge, Sinus tenderness Mouth exam: Normal external inspection, Tongue normal Teeth exam: Normal inspection. negative: Dental caries Throat exam: Normal inspection. negative: Tonsillar erythema, Tonsillar exudate - Neck Neck exam: Normal inspection, Full ROM. negative: Tenderness - Respiratory Respiratory exam: Normal lung sounds bilaterally. negative: Respiratory distress - Cardiovascular Cardiovascular Exam: Regular rate, Normal rhythm, Normal heart sounds Peripheral Pulses: 2+: Dorsalis Pedis (R), Dorsalis Pedis (L) - GI/Abdominal GI/Abdominal exam: Soft, Normal bowel sounds, Tenderness (mild RUQ tenderness with palpation, soft, normoactive). negative: Guarding, Rebound, Rigid - Rectal Rectal exam: Deferred - exam: Deferred - Extremities Extremities exam: Normal inspection, Full ROM, Normal capillary refill. negative: Tenderness - Back Back exam: Reports: Normal inspection, Full ROM. Denies: Muscle spasm, Rash noted, Tenderness - Neurological Neurological exam: Alert, Normal gait, Oriented X3, Reflexes normal - Psychiatric Psychiatric exam: Normal affect, Normal mood - Skin Skin exam: Dry, Intact, Normal color, Warm Assessment and Plan - Assessment and Plan (1) Pancreatitis Current Visit: Yes Status: Acute Qualifiers: Chronicity: acute Pancreatitis type: alcohol induced Acute pancreatitis complication: unspecified Qualified Code(s): K85.20 - Alcohol induced acute pancreatitis without necrosis or infection Base Code: K85.90 - ACUTE PANCREATITIS WITHOUT NECROSIS OR INFECTION, UNSP Comment: 02/01/17- 56 y/o female admitted with acute pancreatitis. Chronic daily alcohol intake of 1 pint vodka. Lipase in ED 4680 decreased to 1462 yesterday and [address] abdomen/pelvis acute and chronic pancreatitis, + cirrhosis, AVN right femoral head (symptomatic). VSS. EKG unchanged from previous. No S/S DT. WBC normal, + macrocytic anemia, AST elevated. will be advancing diet. - CIWA scale q shift - 0.9% NS @ 125ml/hr - will be advancing diet as pain improves - will change IV medications to oral to transition to help transition to discharge - antiemetic - telemetry NSR, normal QT interval<.012 - she has verbalized she is not going to resume drinking once she has returned home - advised she establish with Dr Mayorga, or PCP of choice [facility] after discharge - Thiamine, folate, Vitamin B12 today (2) Alcohol abuse Current Visit: Yes Status: Acute Base Code: F10.10 - ALCOHOL ABUSE, UNCOMPLICATED Comment: 02/01- chronic alcohol abuse, friend passed in July. States will not be drinking anymore at home. started on thiamine, folate, vit B12, advancing diet, fluids, and oral pain control (3) DVT prophylaxis Current Visit: Yes Status: Acute Base Code: [id number] - Comment: 01/31/17- Lovenox 40mg QD, nursing to encourage frequent ambulation (4) Full code status Current Visit: Yes Status: Acute Base Code: Z78.9 - OTHER SPECIFIED HEALTH STATUS Comment: 02/01/17- will remain full code during this hospitalization (5) Hypokalemia Current Visit: Yes Status: Acute Base Code: E87.6 - HYPOKALEMIA Comment: - Potassium in ED 2.7, given K-Dur 40mEq in ED, potassium 3.1 yesterday, 3.6 today - will need rickie of potassium next week to ensure continuing to stay raised (6) Alcohol intoxication Current Visit: No Status: Acute Qualifiers: Complication of substance-induced condition: uncomplicated Base Code: F10.129 - ALCOHOL ABUSE WITH INTOXICATION, UNSPECIFIED Results - Labs Result Diagrams: 02/01/17 06:09 02/01/17 06:09 Labs Last 24 Hours: Laboratory Results - last 24 hr 01/31/17 01/31/17 02/01/17 06:05 14:15 06:09 WBC RBC Hgb Hct MCV MCH MCHC RDW Plt Count MPV Gran % Lymphocytes % Monocytes % Eosinophils % Basophils % Sodium 137 Potassium 3.1 L 3.6 Chloride 107 Carbon Dioxide 19.1 L Anion Gap 10.9 BUN 9 Creatinine 0.4 L Estimated GFR > 60 Random Glucose 93 Calcium 7.4 L Total Bilirubin 0.95 AST 53 H ALT 44 Alkaline Phosphatase 94 Total Protein 5.2 L Albumin 2.6 L Globulin 2.6 Albumin/Globulin Ratio 1.0 L Lipase Folate 4.89 02/01/17 02/01/17 06:09 06:09 WBC 4.4 RBC 2.08 L Hgb 8.8 L Hct 26.7 L MCV 128.4 H MCH 42.3 H MCHC 33.0 RDW 14.8 H Plt Count 125 L MPV 11.9 H Gran % 58.8 Lymphocytes % 14.4 L Monocytes % 19.9 H Eosinophils % 6.4 H Basophils % 0.5 Sodium Potassium Chloride Carbon Dioxide Anion Gap BUN Creatinine Estimated GFR Random Glucose Calcium Total Bilirubin AST ALT Alkaline Phosphatase Total Protein Albumin Globulin Albumin/Globulin Ratio Lipase 456 H Folate DVT/PE Assessment - Risk for VTE Risk for VTE: No Risk Level: Moderate Risk Assessment Date: 01/31/17 Risk Assessment Time: 11:59 VTE Orders Placed or Will Be Placed: Yes - Active Medicaitons Current Medications: Current Medications Hydrocodone Bitart/Acetaminophen (Clever 5mg/325mg) 1 each PO Q4H PRN PRN Reason: Abdominal Pain Hydrocodone Bitart/Acetaminophen (Clever 5mg/325mg) 2 each PO Q4H PRN PRN Reason: Abdominal Pain Cyanocobalamin (Vitamin B-12) 100 mcg PO DAILY NOEMY Last Admin: 02/01/17 09:18 Dose: 100 mcg Diphenhydramine HCl (Benadryl Capsule) 50 mg PO Q4H PRN PRN Reason: ITCHING Last Admin: 02/01/17 02:03 Dose: 50 mg Enoxaparin Sodium (Lovenox) 40 mg SC DAILY [facility] Last Admin: 02/01/17 09:18 Dose: 40 mg Sodium Chloride () 1,000 mls @ 0 mls/hr IV .Q0M NOEMY PRN Reason: Wide Open Last Admin: 01/30/17 17:10 Dose: 1,000 mls/hr Sodium Chloride () 1,000 mls @ 150 mls/hr IV .Q6H40M PRN PRN Reason: LARGE VOLUME IV Last Admin: 02/01/17 04:30 Dose: 150 mls/hr Morphine Sulfate (Morphine Sulfate) 2.5 mg IVP Q4HR PRN PRN Reason: Pain - Moderate (5-7) Stop: 02/07/17 07:33 Last Admin: 02/01/17 02:00 Dose: 2.5 mg Morphine Sulfate (Morphine Sulfate) 2.5 mg IVP Q2HR PRN PRN Reason: Pain - Severe (8-10) Stop: 02/07/17 07:33 Last Admin: 02/01/17 05:08 Dose: 2.5 mg Potassium Chloride (Klor-Con) 20 meq PO BID [facility] Last Admin: 02/01/17 09:18 Dose: 20 meq AMI Plan - Labs Result Diagrams: 02/01/17 06:09 02/01/17 06:09
[2017-02-01] MEDS: HYDROCODONE/APAP 5/325MG TABLET PO PRN ×3 (10:25→19:51)
[2017-02-01] MEDS ORDERED: ONDANSETRON HCL IV 4 MG/2 ML VIAL IVP PRN (19:06)
[2017-02-02] MEDS: HYDROCODONE/APAP 5/325MG TABLET PO PRN ×4 (00:25→20:38)
[2017-02-02 06:31] LABS: HEMATOCRIT 27.9 % (35.0-47.0); HEMOGLOBIN 9.1 gm/dl (11.6-16.0); MEAN CELL VOLUME 126.8 fl (81-97); MEAN CORPUSCULAR HGB CONC 32.6 g/dl (32-36); MEAN PLATELET VOLUME 11.9 fl (7.4-10.4); PLATELET COUNT 178 K/uL (130-400); RED CELL DISTRIBUTION WIDTH 14.8 % (11.5-14.5)
[2017-02-02 06:33] LABS: MEAN CORPUSCULAR HEMOGLOBIN 41.3 pg (27-33)
[2017-02-02 06:44] LABS: ALBUMIN 2.5 gm/dL (3.5-5.0); ALKALINE PHOSPHATASE 90 U/L (38-126); ALT/SGPT 49 U/L (9-52); ANION GAP 7.9 (7-16); AST/SGOT 82 U/L (14-36); BILIRUBIN,TOTAL 0.95 mg/dL (0.2-1.3); BLOOD UREA NITROGEN 5 mg/dL (7-17); CARBON DIOXIDE 23.1 mmol/L (22-30); CREATININE 0.4 mg/dL (0.52-1.04); EST GLOMERULAR FILTRATION RATE > 60 ml/min; GLUCOSE,RANDOM 85 mg/dL (70-110); LIPASE 660 U/L (23-300)
[2017-02-02] MEDS: CYANOCOBALAMIN (VITAMIN B-12) 100 MCG TABLET PO SCH (09:59)
[2017-02-02] MEDS: POTASSIUM CHLORIDE 20 MEQ TABLET PO SCH ×2 (09:59→20:38)
[2017-02-02] MEDS: THIAMINE MONONITRATE 100 MG TABLET PO SCH (09:59)
[2017-02-02] MEDS: ENOXAPARIN 40 MG/0.4 ML SYR SC SCH (09:59)
--- NOTE | 2017-02-02 10:34 | Physician Progress Note ---
Subjective - Date Date of Physician Progress Note: 02/02/17 - Subjective Subjective Comment: 02/02/17- patient states she is feeling a little better this morning. had been doing very well yesterday and her diet was advanced. was tolerating clear liquids very well and had some mashed potatoes last night that did not agree with her. she had increased abdominal pain and nausea through the night and was restricted to npo. this morning says she has had a few sips of water and that seems to be doing ok. Still taking [place] every 4 hours which is controlling her pain. states she still has epigastric pain but it is improved since arrival. no nausea/vomiting currently. passing gas but no BM. Really wants to get home to take care of her dog. Objective - Vital Signs Vital Signs: Vital Signs - Last 24 Hrs Temp Pulse Resp BP Pulse Ox 02/02/17 09:00 72 18 02/02/17 06:00 98.1 F 75 18 91/65 96 02/01/17 20:22 16 02/01/17 20:02 98.2 F 78 18 92/60 94 L 02/01/17 17:28 75 16 96/70 02/01/17 14:00 67 16 91/59 95 - General General Appearance: Alert, Oriented x3, Cooperative, No acute distress, Other ( cachectic) - Head Head exam: Normal inspection - Eye Eye exam: Normal appearance, PERRL Pupils: Normal accommodation - ENT ENT exam: Normal exam, Mucous membranes moist, Normal external ear exam, Normal orophraynx, TM's normal bilaterally Ear exam: Normal external inspection. negative: External canal tenderness Nasal Exam: Normal inspection. negative: Discharge, Sinus tenderness Mouth exam: Normal external inspection, Tongue normal Teeth exam: Normal inspection. negative: Dental caries Throat exam: Normal inspection. negative: Tonsillar erythema, Tonsillar exudate - Neck Neck exam: Normal inspection, Full ROM. negative: Tenderness - Respiratory Respiratory exam: Normal lung sounds bilaterally. negative: Respiratory distress - Cardiovascular Cardiovascular Exam: Regular rate, Normal rhythm, Normal heart sounds Peripheral Pulses: 2+: Dorsalis Pedis (R), Dorsalis Pedis (L) - GI/Abdominal GI/Abdominal exam: Soft, Normal bowel sounds, Tenderness (mild RUQ tenderness with palpation, soft, normoactive). negative: Guarding, Rebound, Rigid - Rectal Rectal exam: Deferred, Tenderness (mild TTP epigastric area) - exam: Deferred - Extremities Extremities exam: Normal inspection, Full ROM, Normal capillary refill. negative: Tenderness - Back Back exam: Reports: Normal inspection, Full ROM. Denies: Muscle spasm, Rash noted, Tenderness - Neurological Neurological exam: Alert, Normal gait, Oriented X3, Reflexes normal - Psychiatric Psychiatric exam: Normal affect, Normal mood - Skin Skin exam: Dry, Intact, Normal color, Warm Assessment and Plan - Assessment and Plan (1) Pancreatitis Current Visit: Yes Status: Acute Qualifiers: Chronicity: acute Pancreatitis type: alcohol induced Acute pancreatitis complication: unspecified Qualified Code(s): K85.20 - Alcohol induced acute pancreatitis without necrosis or infection Base Code: K85.90 - ACUTE PANCREATITIS WITHOUT NECROSIS OR INFECTION, UNSP Comment: 02/02/17- 56 y/o female admitted with acute pancreatitis. Chronic daily alcohol intake of 1 pint vodka. Lipase trending downward. CT abdomen/ pelvis acute and chronic pancreatitis, + cirrhosis, AVN right femoral head ( symptomatic). VSS. EKG unchanged from previous. No S/S DT. WBC normal, + macrocytic anemia, AST elevated. will be advancing diet to clear liquids this morning and she how tolerates - CIWA scale q shift - 0.9% NS @ 125ml/hr - will be advancing diet as pain improves - will change IV medications to oral to transition to help transition to discharge - antiemetic - she has verbalized she is not going to resume drinking once she has returned home - advised she establish with Dr Mayorga, or PCP of choice [facility] after discharge (2) Alcohol abuse Current Visit: Yes Status: Acute Base Code: F10.10 - ALCOHOL ABUSE, UNCOMPLICATED Comment: 02/02/17- chronic alcohol abuse, friend passed in July. States will not be drinking anymore at home. started on thiamine, folate, vit B12, advancing diet, fluids, and oral pain controll. She declines any social human services assistants at this point (3) DVT prophylaxis Current Visit: Yes Status: Acute Base Code: [id number] - Comment: 02/02/17- Lovenox 40mg QD, nursing to encourage frequent ambulation (4) Full code status Current Visit: Yes Status: Acute Base Code: Z78.9 - OTHER SPECIFIED HEALTH STATUS Comment: 02/02/17- will remain full code during this hospitalization (5) Hypokalemia Current Visit: Yes Status: Resolved Base Code: E87.6 - HYPOKALEMIA Comment : 02/02/17- resolved. - will continue to monitor Results - Labs Result Diagrams: 02/02/17 06:07 02/02/17 06:07 Labs Last 24 Hours: Laboratory Results - last 24 hr 02/02/17 02/02/17 06:07 06:07 WBC 4.0 L RBC 2.20 L Hgb 9.1 L Hct 27.9 L MCV 126.8 H MCH 41.3 H MCHC 32.6 RDW 14.8 H Plt Count 178 MPV 11.9 H Neutrophils % 53.0 Eosinophils % Not Reportable Basophils % Not Reportable Lymphocytes 21.0 Monocytes 20.0 H Macrocytosis 2+ Eosinophil Count 6.0 Sodium 138 Potassium 4.3 Chloride 107 Carbon Dioxide 23.1 Anion Gap 7.9 BUN 5 L Creatinine 0.4 L Estimated GFR > 60 Random Glucose 85 Calcium 7.6 L Total Bilirubin 0.95 AST 82 H ALT 49 Alkaline Phosphatase 90 Total Protein 5.0 L Albumin 2.5 L Globulin 2.5 Albumin/Globulin Ratio 1.0 L Lipase 660 H DVT/PE Assessment - Risk for VTE Risk for VTE: No Risk Level: Moderate Risk Assessment Date: 01/31/17 Risk Assessment Time: 11:59 VTE Orders Placed or Will Be Placed: Yes - Active Medicaitons Current Medications: Current Medications Hydrocodone Bitart/Acetaminophen ([place] 5mg/325mg) 1 each PO Q4H PRN PRN Reason: Abdominal Pain Hydrocodone Bitart/Acetaminophen ([place] 5mg/325mg) 2 each PO Q4H PRN PRN Reason: Abdominal Pain Last Admin: 02/02/17 09:58 Dose: 2 each Cyanocobalamin (Vitamin B-12) 100 mcg PO DAILY NOEMY Last Admin: 02/02/17 09:59 Dose: 100 mcg Diphenhydramine HCl (Benadryl Capsule) 50 mg PO Q4H PRN PRN Reason: ITCHING Last Admin: 02/01/17 02:03 Dose: 50 mg Enoxaparin Sodium (Lovenox) 40 mg SC DAILY NOEMY Last Admin: 02/02/17 09:59 Dose: 40 mg Sodium Chloride () 1,000 mls @ 0 mls/hr IV .Q0M NOEMY PRN Reason: Wide Open Last Admin: 01/30/17 17:10 Dose: 1,000 mls/hr Sodium Chloride () 1,000 mls @ 150 mls/hr IV .Q6H40M PRN PRN Reason: LARGE VOLUME IV Last Admin: 02/01/17 15:05 Dose: 150 mls/hr Morphine Sulfate (Morphine Sulfate) 2.5 mg IVP Q4HR PRN PRN Reason: Pain - Moderate (5-7) Stop: 02/07/17 07:33 Last Admin: 02/01/17 02:00 Dose: 2.5 mg Morphine Sulfate (Morphine Sulfate) 2.5 mg IVP Q2HR PRN PRN Reason: Pain - Severe (8-10) Stop: 02/07/17 07:33 Last Admin: 02/01/17 05:08 Dose: 2.5 mg Ondansetron HCl (Zofran) 4 mg IVP Q6H PRN PRN Reason: NAUSEA Last Admin: 02/01/17 19:11 Dose: 4 mg Potassium Chloride (Klor-Con) 20 meq PO BID NOEMY Last Admin: 02/02/17 09:59 Dose: 20 meq AMI Plan - Labs Result Diagrams: 02/02/17 06:07 02/02/17 06:07
[2017-02-02] MEDS: 0.9 % SODIUM CHLORIDE 1000ML 1,000 ML IV PRN (11:24)
[2017-02-03] MEDS: POTASSIUM CHLORIDE 20 MEQ TABLET PO SCH ×2 (02:52→09:30)
[2017-02-03] MEDS: HYDROCODONE/APAP 5/325MG TABLET PO PRN ×2 (02:54→09:00)
[2017-02-03 06:51] LABS: HEMATOCRIT 25.9 % (35.0-47.0); HEMOGLOBIN 8.4 gm/dl (11.6-16.0); MEAN CELL VOLUME 127.6 fl (81-97); MEAN CORPUSCULAR HGB CONC 32.4 g/dl (32-36); MEAN PLATELET VOLUME 11.9 fl (7.4-10.4); PLATELET COUNT 200 K/uL (130-400); RED BLOOD COUNT 2.03 M/uL (3.80-5.40); RED CELL DISTRIBUTION WIDTH 14.9 % (11.5-14.5); WHITE BLOOD COUNT W/O DIFF 3.1 K/uL (4.2-12.2)
[2017-02-03 06:59] LABS: MEAN CORPUSCULAR HEMOGLOBIN 41.3 pg (27-33)
[2017-02-03 07:07] LABS: ALBUMIN 2.2 gm/dL (3.5-5.0); ALKALINE PHOSPHATASE 82 U/L (38-126); ALT/SGPT 50 U/L (9-52); ANION GAP 6.3 (7-16); AST/SGOT 73 U/L (14-36); CARBON DIOXIDE 21.7 mmol/L (22-30); CREATININE 0.4 mg/dL (0.52-1.04); EST GLOMERULAR FILTRATION RATE > 60 ml/min; GLUCOSE,RANDOM 89 mg/dL (70-110); LIPASE 53 U/L (23-300); TOTAL PROTEIN 4.5 gm/dL (6.3-8.2)
[2017-02-03 07:17] LABS: BLOOD UREA NITROGEN 2 mg/dL (7-17)
--- NOTE | 2017-02-03 07:43 | Discharge Summary ---
Providers Discharge Summary Date: 02/03/17 Date of admission: 01/30/17 18:12 Expected Date of Discharge: 02/03/17 Attending physician: SEKOU MENDOZA Physical Exam - Vital Signs Vital Signs: Vital Signs - Last 24 Hrs Temp Pulse Resp BP Pulse Ox 02/03/17 06:00 98.1 F 60 16 76/52 98 02/03/17 02:00 98.3 F 69 18 80/45 98 02/02/17 22:21 98.7 F 67 16 72/44 96 02/02/17 21:00 18 02/02/17 18:54 98.7 F 74 18 90/51 97 02/02/17 15:33 96/70 93 L 02/02/17 15:15 98.7 F 64 16 84/56 02/02/17 10:31 98.0 F 68 18 98/60 96 02/02/17 09:00 72 18 - General General Appearance: Alert, Oriented x3, Cooperative, No acute distress, Other ( cachectic) - Head Head exam: Normal inspection - Eye Eye exam: Normal appearance, PERRL Pupils: Normal accommodation - ENT ENT exam: Normal exam, Mucous membranes moist, Normal external ear exam, Normal orophraynx, TM's normal bilaterally Ear exam: Normal external inspection. negative: External canal tenderness Nasal Exam: Normal inspection. negative: Discharge, Sinus tenderness Mouth exam: Normal external inspection, Tongue normal Teeth exam: Normal inspection. negative: Dental caries Throat exam: Normal inspection. negative: Tonsillar erythema, Tonsillar exudate - Neck Neck exam: Normal inspection, Full ROM. negative: Tenderness - Respiratory Respiratory exam: Normal lung sounds bilaterally. negative: Respiratory distress - Cardiovascular Cardiovascular Exam: Regular rate, Normal rhythm, Normal heart sounds Peripheral Pulses: 2+: Dorsalis Pedis (R), Dorsalis Pedis (L) - GI/Abdominal GI/Abdominal exam: Soft, Normal bowel sounds, Tenderness (mild RUQ tenderness with palpation, soft, normoactive). negative: Guarding, Rebound, Rigid - Rectal Rectal exam: Deferred, Tenderness (mild TTP epigastric area) - exam: Deferred - Extremities Extremities exam: Normal inspection, Full ROM, Normal capillary refill. negative: Tenderness - Back Back exam: Reports: Normal inspection, Full ROM. Denies: Muscle spasm, Rash noted, Tenderness - Neurological Neurological exam: Alert, Normal gait, Oriented X3, Reflexes normal - Psychiatric Psychiatric exam: Normal affect, Normal mood - Skin Skin exam: Dry, Intact, Normal color, Warm Hospitalization - Hospitalization Admission Diagnosis: acute pancreatitis. hypokalemia. alcohol abuse - Problem List/Discharge Diagnosis (1) Pancreatitis Current Visit: Yes Status: Acute Discharge Diagnosis: Chronicity: acute Pancreatitis type: alcohol induced Acute pancreatitis complication: unspecified Qualified Code(s): K85.20 - Alcohol induced acute pancreatitis without necrosis or infection Base Code: K85.90 - ACUTE PANCREATITIS WITHOUT NECROSIS OR INFECTION, UNSP Comment: 02/03/17- 56 y/o female admitted with acute pancreatitis, likely acute on chronic 2/2 chronic alcohol abuse. Currently having resolution of abdominal pain and tolerating clear liquids without any nausea or pain. Lipase continues trending downward. CT abdomen/pelvis acute and chronic pancreatitis, + cirrhosis , AVN right femoral head (symptomatic). AST elevated but trending downward. - continue to advance diet as tolerating. Oil Burner Technician met with patient and gave handouts on diet for pancreatitis and alcoholism. - she has verbalized she is not going to resume drinking once she has returned home -will send home with 7 days worth of hydrocodone 5/325mg po Q6H prn severe pain -will send home with outpatient lab order to have blood work done prior to follow up [facility] - advised she establish with Dr Mayorga, or PCP of choice [facility] after discharge. She has new patient intake forms for Dr. Mayorga's office which is who she would prefer to establish with. (2) Macrocytic anemia Current Visit: Yes Status: Acute Base Code: D53.9 - NUTRITIONAL ANEMIA, UNSPECIFIED Comment: 02/03/17- Stable. hgb 8.4 with MCV of 127.6 secondary to chronic alcohol use. -will send home with multi-vitamin with folic acid -repeat CBC in 7-10 days -explained to patient that it may take 2-4 months of abstaining from alcohol for anemia to resolve. (3) Alcohol abuse Current Visit: Yes Status: Acute Base Code: F10.10 - ALCOHOL ABUSE, UNCOMPLICATED Comment: 02/03/17- chronic alcohol abuse, friend passed in July. States will not be drinking anymore at home. scoring 0 on the CIWA scale during her stay. She was started on thiamine, folate, vit B12 while in patient. She declines any transition social worker at this point -multivitamin with folic acid sent to pharmacy (4) DVT prophylaxis Current Visit: Yes Status: Acute Base Code: [id number] - Comment: 02/03/17- Lovenox 40mg QD, nursing to encourage frequent ambulation (5) Full code status Current Visit: Yes Status: Acute Base Code: Z78.9 - OTHER SPECIFIED HEALTH STATUS Comment: 02/03/17- will remain full code during this hospitalization (6) Hypokalemia Current Visit: Yes Status: Resolved Base Code: E87.6 - HYPOKALEMIA Comment : 02/03/17- resolved. - will continue daily kdur 20meq po bid -follow up wtih PCP in the next 7-10 days -outpatient lab orders to have cmp repeated prior to that appointment - Hospitalization Course Disposition: Home, Self-Care Hospital Course: 56 y/o female with 4 day history of vomiting admitted for acute pancreatitis. Past medical history of current every day smoker, heavy alcohol use ( 1 pint 5 O 'clock vodka daily), bronchitis, hypothyroidism, Sktfhbt-Whcyk-Ldtve disease. Prior to arrival had 4 day history of nausea, vomiting and epigastric abdominal pain. Denied hematemesis, diarrhea, rectal bleeding. Quit drinking for 2 days which did not resolve her symptoms. Does report day 1 of alcohol abstinence she felt tachycardic and was shaky but has not had any withdrawal symptoms since. While in the ED VS stable with slight tachycardia. CBC with a macrocytic anemia , plt 115, normal WBC. Coag studies normal. Potassium 2.7 in ED Lipase 4680. AST 73. U/A trace protein, + ketones, small bilirubin. EKG ectopic atrial tachycardia prolonged QT interval, retrograde P wave, no acute changes from previous. CT abdomen/pelvis consistent with acute and chronic moderate pancreatitis, cirrhosis with diffuse hepatic steatosis, avascular necrosis of right femoral head. Laboratory Results WBC 5.6 K/uL (4.2-12.2) 01/30/17 14:40 RBC 2.69 M/uL (3.80-5.40) L 01/30/17 14:40 Hgb 11.5 gm/dl (11.6-16.0) L 01/30/17 14:40 Hct 33.3 % (35.0-47.0) L 01/30/17 14:40 MCV 123.8 fl (81-97) H 01/30/17 14:40 MCH 42.7 pg (27-33) H 01/30/17 14:40 MCHC 34.5 g/dl (32-36) 01/30/17 14:40 RDW 15.0 % (11.5-14.5) H 01/30/17 14:40 Plt Count 115 K/uL (130-400) L 01/30/17 14:40 MPV 11.5 fl (7.4-10.4) H 01/30/17 14:40 Gran % 68.7 % (47-80) 01/30/17 14:40 Lymphocytes % 13.3 % (16-45) L 01/30/17 14:40 Monocytes % 14.7 % (0-9) H 01/30/17 14:40 Eosinophils % 2.9 % (0-6) 01/30/17 14:40 Basophils % 0.4 % (0-6) 01/30/17 14:40 PT 11.7 SECONDS (9.5-12.1) 01/30/17 14:40 INR 1.08 01/30/17 14:40 Sodium 137 mmol/L (136-145) 01/31/17 06:05 Potassium 3.1 mmol/L (3.5-5.1) L 01/31/17 06:05 Chloride 103 mmol/L (98-107) 01/31/17 06:05 Carbon Dioxide 25.5 mmol/L (22-30) 01/31/17 06:05 Anion Gap 8.5 (7-16) 01/31/17 06:05 BUN 9 mg/dL (7-17) 01/31/17 06:05 Creatinine 0.4 mg/dL (0.52-1.04) L 01/31/17 06:05 Estimated GFR > 60 ml/min 01/31/17 06:05 Random Glucose 103 mg/dL (70-110) 01/31/17 06:05 Calcium 7.6 mg/dL (8.5-10.1) L 01/31/17 06:05 Total Bilirubin 1.27 mg/dL (0.2-1.3) 01/30/17 14:40 Direct Bilirubin 0.0 mg/dL (0-0.3) 01/30/17 14:40 AST 73 U/L (14-36) H 01/30/17 14:40 ALT 46 U/L (9-52) 01/30/17 14:40 Alkaline Phosphatase 122 U/L (38-126) 01/30/17 14:40 Total Protein 7.2 gm/dL (6.3-8.2) 01/30/17 14:40 Albumin 4.0 gm/dL (3.5-5.0) 01/30/17 14:40 Lipase 1462 U/L (23-300) H 01/31/17 06:05 Urine Color Dark yellow 01/30/17 14:40 Urine Appearance Clear 01/30/17 14:40 Urine pH 6.0 (5.0-8.0) 01/30/17 14:40 Ur Specific [place] 1.020 (1.002-1.030) 01/30/17 14:40 Urine Protein Trace (NEGATIVE) H 01/30/17 14:40 Urine Glucose (UA) Negative (NEGATIVE) 01/30/17 14:40 Urine Ketones Trace (NEGATIVE) H 01/30/17 14:40 Urine Blood Negative (NEGATIVE) 01/30/17 14:40 Urine Nitrite Negative (NEGATIVE) 01/30/17 14:40 Urine Bilirubin Small (NEGATIVE) H 01/30/17 14:40 Urine Urobilinogen 2.0 E.U./dL (0.20 - 1.00) H 01/30/17 14:40 Ur Leukocyte Esterase Negative (NEGATIVE) 01/30/17 14:40 Vital Signs - Last 24 Hrs Temp Pulse Pulse Resp BP BP Pulse Ox 01/31/17 09:08 99.5 F 86 16 91/59 90/62 96 01/31/17 09:00 86 16 01/31/17 06:00 99.5 F 91 H 18 91/59 98 01/31/17 01:58 98.8 F 90 18 93/72 95 01/30/17 22:00 99.5 F 98 H 18 97/63 96 01/30/17 19:23 16 01/30/17 18:08 109 H 20 105/80 97 01/30/17 18:00 98.9 F 101 H 16 113/70 98 01/30/17 15:39 115 H 18 119/85 97 01/30/17 14:04 99.0 F 14 98 01/30/17 13:13 99.0 F 111 H 14 119/80 98 01/31/17- resting in bed comfortably, denies nausea, tremors, diarrhea, agitation , anxiety. Does report still has LUQ abdominal pain but has significantly improved since admission. Reports has been itching with Dilaudid, Benadryl effective and pain control changed to Morphine Sulfate. Usually takes vitamin at home " when I remember". Reports is home on disability, lives alone and "ties one on and has a 1 person democrat". Has not seen a PCP in > 5 years. 02/01/17- improved today in symptoms of abdominal pain. no nausea or vomitting. started jello this morning and started having a bit of abdominal pain. 02/02/17- patient states she is feeling a little better this morning. had been doing very well yesterday and her diet was advanced. was tolerating clear liquids very well and had some mashed potatoes last night that did not agree with her. she had increased abdominal pain and nausea through the night and was restricted to npo. this morning says she has had a few sips of water and that seems to be doing ok. Still taking [place] every 4 hours which is controlling her pain. states she still has epigastric pain but it is improved since arrival. no nausea/vomiting currently. passing gas but no BM. Really wants to get home to take care of her dog. 02/03/17- Patient states she is feeling great today. She denies any nausea, vomiting. had a normal BM yesterday. Abdominal pain is resolved and is tolerating clear liquid diet. Oil Burner Technician stopped by to educate on diet for pancreatitis and alcohol use. She is still taking norco 5 about every 4 hours which she says is now more for her back and hips from being in bed and not for the abdominal pain. she has the new patient paperwork for Dr. Mayorga's office which is her preferred pcp to establish with. Encouraged her to get that done lyndon and get appointment scheduled within 7-10 days. I also recommended that she discuss having a GI referral for chronic pancreatitis and cirrhosis seen on CT scan. PCP: none, is planning on applying to establish with Dr Mayorga after discharge Abnormal Labs: Abnormal Lab Results 01/31/17 01/31/1702/01/17 Range/Units 06:05 14:15 06:09 WBC (4.2-12.2) K/uL RBC (3.80-5.40) M/uL Hgb (11.6-16.0) gm/dl Hct (35.0-47.0) % MCV (81-97) fl MCH (27-33) pg RDW (11.5-14.5) % Plt Count (130-400) K/uL MPV (7.4-10.4) fl Lymphocytes % (16-45) % Monocytes % (0-9) % Eosinophils % (0-6) % Monocytes (0-9) % Potassium 3.1 L 3.1 L (3.5-5.1) mmol/L Chloride (98-107) mmol/L Carbon Dioxide 19.1 L (22-30) mmol/L Anion Gap (7-16) BUN (7-17) mg/dL Creatinine 0.4 L 0.4 L (0.52-1.04) mg/dL Calcium 7.6 L 7.4 L (8.5-10.1) mg/dL AST 53 H (14-36) U/L Total Protein 5.2 L (6.3-8.2) gm/dL Albumin 2.6 L (3.5-5.0) gm/dL Albumin/Globulin Ratio 1.0 L (1.1-1.8) Lipase 1462 H (23-300) U/L 02/01/17 02/01/17 02/02/17 Range/Units 06:09 06:09 06:07 WBC 4.0 L (4.2-12.2) K/uL RBC 2.08 L 2.20 L (3.80-5.40) M/uL Hgb 8.8 L 9.1 L (11.6-16.0) gm/dl Hct 26.7 L 27.9 L (35.0-47.0) % MCV 128.4 H 126.8 H (81-97) fl MCH 42.3 H 41.3 H (27-33) pg RDW 14.8 H 14.8 H (11.5-14.5) % Plt Count 125 L (130-400) K/uL MPV 11.9 H 11.9 H (7.4-10.4) fl Lymphocytes % 14.4 L (16-45) % Monocytes % 19.9 H (0-9) % Eosinophils % 6.4 H (0-6) % Monocytes 20.0 H (0-9) % Potassium (3.5-5.1) mmol/L Chloride (98-107) mmol/L Carbon Dioxide (22-30) mmol/L Anion Gap (7-16) BUN (7-17) mg/dL Creatinine (0.52-1.04) mg/dL Calcium (8.5-10.1) mg/dL AST (14-36) U/L Total Protein (6.3-8.2) gm/dL Albumin (3.5-5.0) gm/dL Albumin/Globulin Ratio (1.1-1.8) Lipase 456 H (23-300) U/L 02/02/17 02/03/17 02/03/17 Range/Units 06:07 06:20 06:20 WBC 3.1 L (4.2-12.2) K/uL RBC 2.03 L (3.80-5.40) M/uL Hgb 8.4 L (11.6-16.0) gm/dl Hct 25.9 L (35.0-47.0) % MCV 127.6 H (81-97) fl MCH 41.3 H (27-33) pg RDW 14.9 H (11.5-14.5) % Plt Count (130-400) K/uL MPV 11.9 H (7.4-10.4) fl Lymphocytes % (16-45) % Monocytes % (0-9) % Eosinophils % (0-6) % Monocytes (0-9) % Potassium (3.5-5.1) mmol/L Chloride 109 H (98-107) mmol/L Carbon Dioxide 21.7 L (22-30) mmol/L Anion Gap 6.3 L (7-16) BUN 5 L 2 L (7-17) mg/dL Creatinine 0.4 L 0.4 L (0.52-1.04) mg/dL Calcium 7.6 L 7.2 L (8.5-10.1) mg/dL AST 82 H 73 H (14-36) U/L Total Protein 5.0 L 4.5 L (6.3-8.2) gm/dL Albumin 2.5 L 2.2 L (3.5-5.0) gm/dL Albumin/Globulin Ratio 1.0 L 1.0 L (1.1-1.8) Lipase 660 H (23-300) U/L Condition at Discharge: (2) Stable Discharge Medications - Discharge Medications Prescriptions: Hydrocodone/Acetaminophen [Hydrocodone/Acetaminophen 5mg/325mg] 1 tab PO Q6H PRN #28 tab PRN Reason: Pain - Severe (8-10) Multivitamin with Folic Acid [Thera Tablet] 1 each PO DAILY #30 tablet Home Medications: Ambulatory Orders Pike-3 Fatty Acids/Fish Oil [Fish Oil 1,000 mg Capsule] 1 tab PO DAILY [Last Taken Unknown] Potassium Chloride [Klor-Con] 10 meq PO BID 01/30/17 [Last Taken Unknown] Hydrocodone/Acetaminophen [Hydrocodone/Acetaminophen 5mg/325mg] 1 tab PO Q6H PRN #28 tab 02/03/17 [Last Taken Unknown] Ibuprofen 800 mg PO Q8HR PRN #42 tab 02/03/17 [Last Taken 01/30/17] Multivitamin with Folic Acid [Thera Tablet] 1 each PO DAILY #30 tablet 02/03/17 [Last Taken Unknown] Discharge Plan - Discharge Instructions Activity at Discharge: Resume Usual Activities As Tolerated Diet at Discharge: Advance to Usual Diet Instructions: Pancreatitis (DC), Hypokalemia (DC), Abuse of Alcohol (DC) Additional Instructions: Finish new patient intake for Dr. Mayorga. Please follow up within 7-10 days. Please have labs done prior to your appointment with Dr. Mayorga. Bring lab order form to [facility] lab may use norco 5/325mg by mouth every 6 hours as needed for severe pain May use ibuprofen as needed for mild to moderate pain Resume home meds Activity as tolerating Continue clear liquid diet and continue to advance as tolerating. Avoid high fat containing foods, follow outline that Penny gave. Return to the ED if any new or worsening symptoms
[2017-02-03 08:33] LABS: HYPOCHROMIA 1+; PLATELET ESTIMATE NORMAL (NORMAL)
[2017-02-03] MEDS: ENOXAPARIN 40 MG/0.4 ML SYR SC SCH (09:30)
[2017-02-03] MEDS: CYANOCOBALAMIN (VITAMIN B-12) 100 MCG TABLET PO SCH (09:30)
[2017-02-03] MEDS: THIAMINE MONONITRATE 100 MG TABLET PO SCH (09:30)
== END 2017-02-03 10:56 | disposition home or self-care (01) | DRG 440 ==
LOC: ER 12:57 → MEDSURG 18:12
PROVIDERS: ADMIT Family Medicine; ATTEND Family Medicine
DX: K85.20 Alcohol induced acute pancreatitis without necrosis or infection (principal); E87.6 Hypokalemia; Z78.9 Other specified health status; E03.9 Hypothyroidism, unspecified; G60.0 Hereditary motor and sensory neuropathy; F10.10 Alcohol abuse, uncomplicated
CPT/HCPCS: 93041; 99285 ×2; 96374; 96361; 83690; 85025; 85610; 80076; 80048; 81003; 74176; 93005; 93010; J1170; 80053; 82746; 84132; 84425; 85027; 90732; 99223; 99233; 99239; J1650; J2405; J7030

== ENCOUNTER 2017-11-30 23:44 | Emergency (ER) | payer MEDICAID, MEDICARE ==
--- NOTE | 2017-12-01 00:32 | Emergency Department Record ---
History of Present Illness - General Chief complaint: Pain Stated complaint: LEFT FOOT BUNION, PAIN X3 DAYS Time Seen by Provider: 11/30/17 23:52 Source: Patient Mode of Arrival: Ambulatory Limitations: No limitations - History of Present Illness Initial comments: pt is c/o foot pain for 3 days. she does not recall injury. the foot has swelling and is red along the lateral aspect Complaint: Extremity pain, Extremity swelling Onset/Timin -: Days(s) Location: Left, Foot Radiation: None Quality: Aching Consistency: Constant Improves with: Nothing Worsens with: Walking Associated Symptoms: Denies other symptoms - Related Data Home Medications Medication Instructions Recorded Confirmed Last Taken 21/Iron Fu/Folic Acid 1 each PO DAILY 11/30/17 11/30/17 11/30/17 [ Complete Caplet] Previous Rx's Medication Instructions Recorded Ibuprofen 800 mg PO Q8HR PRN #42 tab 02/03/17 Clindamycin HCl 150 mg PO TID #30 capsule 12/01/17 Clindamycin HCl [Cleocin HCl] 300 mg PO TID #30 capsule 12/01/17 Allergies Allergy/AdvReac Type Severity Reaction Status Date / Time amoxicillin AdvReac Mild YEAST Verified 07/19/16 00:56 INFETION Sulfa (Sulfonamide AdvReac Mild ABDOMINAL Verified 07/19/16 00:56 Antibiotics) CRAMPS Travel Screening - Travel/Exposure Within Last 30 Days Have you traveled within the last 30 days?: No - Travel Symptoms Symptom Screening: None Review of Systems Reviewed: No additional complaints except as noted below Constitutional: Reports: As per HPI. Denies: Chills, Fever, Malaise, Night sweats, Weakness, Weight change Eyes: Reports: As per HPI. Denies: Eye discharge, Eye pain, Photophobia, Vision change ENT: Reports: As per HPI. Denies: Congestion, Dental pain, Ear pain, Epistaxis , Hearing loss, Throat pain Respiratory: Reports: As per HPI. Denies: Cough, Dyspnea, Hemoptysis, Stridor, Wheezes Cardiovascular: Reports: As per HPI. Denies: Arrhythmia, Chest pain, Dyspnea on exertion, Edema, Murmurs, Orthopnea, Palpitations, Paroxysmal nocturnal dyspnea, Rheumatic Fever, Syncope Endocrine: Reports: As per HPI. Denies: Fatigue, Heat or cold intolerance, Polydipsia, Polyuria Gastrointestinal: Reports: As per HPI. Denies: Abdominal pain, Constipation, Diarrhea, Hematemesis, Hematochezia, Melena, Nausea, Vomiting Genitourinary: Reports: As per HPI. Denies: Abnormal menses, Discharge, Dyspareunia, Dysuria, Frequency, Hematuria, Incontinence, Retention, Urgency Musculoskeletal: Reports: As per HPI. Denies: Arthralgia, Back pain, Gout, Joint swelling, Myalgia, Neck pain Skin: Reports: As per HPI. Denies: Bruising, Change in color, Change in hair/ nails, Lesions, Pruritus, Rash Neurological: Reports: As per HPI. Denies: Abnormal gait, Confusion, Headache, Numbness, Paresthesias, Seizure, Tingling, Tremors, Vertigo, Weakness Psychiatric: Reports: As per HPI. Denies: Anxiety, Auditory hallucinations, Depression, Homicidal thoughts, Suicidal thoughts, Visual hallucinations Hematological/Lymphatic: Reports: As per HPI. Denies: Anemia, Blood Clots, Easy bleeding, Easy bruising, Swollen glands Past Medical History - SOCIAL HISTORY Smoking Status: Current some day smoker Alcohol Use: Heavy Drug Use: Occasional Drug Use Detail:: Marijuana - RESPIRATORY Hx Respiratory Disorders: Yes Hx Bronchitis: Yes Hx COPD: Yes - CARDIOVASCULAR Hx Cardio Disorders: No - NEURO Hx Neuro Disorders: No - GI Hx GI Disorders: Yes Hx Irritable Bowel: Yes Hx Pancreatitis: Yes - Hx Genitourinary Disorders: No - ENDOCRINE Hx Endocrine Disorders: Yes Hx Thyroid Disease: Yes (hypo) Comment:: states needs medication/inbtw doctor - MUSCULOSKELETAL Hx Musculoskeletal Disorders: Yes Hx Arthritis: Yes Hx Musculoskeletal Disease: Yes (sharco naya tooth) Comment:: numbness/tingling rle to mid thigh - PSYCH Hx Psych Problems: No Hx Anxiety: No Hx Behavior Problems: No Hx Depression: No - HEMATOLOGY/ONCOLOGY Hx Hematology/Oncology Disorders: No Hx Clotting Problems: Yes Family Medical History Any Significant Family History?: Yes Hx Stroke: Mother Physical Exam - General General Appearance: Alert, Oriented x3, Cooperative, Mild distress - Head Head exam: Normal inspection - Eye Eye exam: Normal appearance, PERRL, EOMI Pupils: Normal accommodation - ENT ENT exam: Normal exam, Mucous membranes moist, Normal external ear exam, Normal orophraynx Ear exam: Normal external inspection. negative: External canal tenderness Nasal Exam: Normal inspection. negative: Discharge, Sinus tenderness Mouth exam: Normal external inspection, Tongue normal Teeth exam: Normal inspection. negative: Dental caries Throat exam: Normal inspection. negative: Tonsillar erythema, Tonsillar exudate - Neck Neck exam: Normal inspection, Full ROM. negative: Tenderness - Respiratory Respiratory exam: Normal lung sounds bilaterally. negative: Respiratory distress - Cardiovascular Cardiovascular Exam: Regular rate, Normal rhythm, Normal heart sounds - GI/Abdominal GI/Abdominal exam: Soft, Normal bowel sounds. negative: Tenderness - Rectal Rectal exam: Deferred - exam: Deferred - Extremities Extremities exam: Normal inspection, Full ROM, Normal capillary refill, Tenderness Image of Feet: 1 - swelling, tender, erythema - Back Back exam: Reports: Normal inspection, Full ROM. Denies: Muscle spasm, Rash noted, Tenderness - Neurological Neurological exam: Alert, CN II-XII intact, Normal gait, Oriented X3 - Psychiatric Psychiatric exam: Normal affect, Normal mood - Skin Skin exam: Dry, Intact, Normal color, Warm Course Vital Signs 11/30/17 23:59 Temperature 98.1 F Pulse Rate [ 86 Pulse Ox Probe] Respiratory 18 Rate Blood Pressure 107/65 [Left Arm] Pulse Ox 96 Disposition Disposition: Discharge Clinical Impression: Cellulitis Qualifiers: Site of cellulitis: extremity Site of cellulitis of extremity: lower extremity Laterality: left Qualified Code(s): L03.116 - Cellulitis of left lower limb Disposition: Home, Self-Care Condition: (1) Good Instructions: Cellulitis (ED) Additional Instructions: soak foot 4 times a day. elevate foot. follow up with dr bowers. return sooner if worse Prescriptions: Clindamycin HCl 150 mg PO TID #30 capsule Clindamycin HCl [Cleocin HCl] 300 mg PO TID #30 capsule Referrals: CORNELIUS BOWERS [DOCTOR OF PODIATRY MEDICINE] - [facility] Specialty Clinics [Provider Group] Forms: Patient Portal Access Quality - Quality Measures Quality Measures: N/A - Blood Pressure Screening Does Patient Have Any of the Following: No Blood Pressure Classification: Normal BP Reading Systolic Measurement: 107 Diastolic Measurement: 65 Screening for High Blood Pressure: < Normal BP, F/U Not Required > [G2341]
[2017-12-01] MEDS ORDERED: CLINDAMYCIN 150 MG CAP PO SCH (01:00)
[2017-12-01] MEDS ORDERED: HYDROCODONE/APAP 5/325MG TABLET PO ONE (01:09)
[2017-12-01] MEDS ORDERED: CLINDAMYCIN 150 MG CAP PO ONE (01:14)
== END 2017-12-01 01:26 | disposition home or self-care (01) ==
LOC: ER 23:44
DX: L03.116 Cellulitis of left lower limb (principal); F17.210 Nicotine dependence, cigarettes, uncomplicated
CPT/HCPCS: 99283

== ENCOUNTER 2017-12-23 05:12 | Emergency (ER) | payer BC, MEDICAID ==
--- NOTE | 2017-12-23 05:58 | Emergency Department Record ---
History of Present Illness - General Chief Complaint: Fall Injury Stated Complaint: FALL WITH LEG INJURY Time Seen by Provider: 12/23/17 05:35 Source: Patient, EMS Mode of Arrival: EMS Limitations: No limitations - History of Present Illness Initial Comments: pt fell down 2 steps 12 hrs ago. she crawled back into her house. she has been drinking shots for the pain MD Complaint: Fall Onset/Timin -: Hour(s) Fall From: Down stairs (#) Fall Witnessed: No Place Fall Occurred: Home Loss of Consciousness: None Prolonged Down Time?: No Symptoms Prior to Fall: None Location - Extremities: Left: Ankle Severity scale (1-10): 10 Associated Symptoms: Unable to walk - Cecil Coma Scale Eye Response: (4) Open spontaneously Motor Response: (6) Obeys commands Verbal Response: (5) Oriented Cecil Total: 15 - Related Data Home Medications Medication Instructions Recorded Confirmed Last Taken Gluc Chong/Chondro Chong A/Vit C/Mn 1 each PO BID 12/23/17 12/23/17 Unknown [Glucosamine-Chondroitin Cap] Previous Rx's Medication Instructions Recorded Ibuprofen 800 mg PO Q8HR PRN #42 tab 02/03/17 Hydrocodone/Acetaminophen [[place] 1 each PO Q6HR #10 tablet 12/23/17 5-325 Tablet] Allergies Allergy/AdvReac Type Severity Reaction Status Date / Time amoxicillin AdvReac Mild YEAST Verified 07/19/16 00:56 INFETION Sulfa (Sulfonamide AdvReac Mild ABDOMINAL Verified 07/19/16 00:56 Antibiotics) CRAMPS Travel Screening - Travel/Exposure Within Last 30 Days Have you traveled within the last 30 days?: No - Travel Symptoms Symptom Screening: None Review of Systems Reviewed: No additional complaints except as noted below Constitutional: Reports: As per HPI. Denies: Chills, Fever, Malaise, Night sweats, Weakness, Weight change Eyes: Reports: As per HPI. Denies: Eye discharge, Eye pain, Photophobia, Vision change ENT: Reports: As per HPI. Denies: Congestion, Dental pain, Ear pain, Epistaxis , Hearing loss, Throat pain Respiratory: Reports: As per HPI. Denies: Cough, Dyspnea, Hemoptysis, Stridor, Wheezes Cardiovascular: Reports: As per HPI. Denies: Arrhythmia, Chest pain, Dyspnea on exertion, Edema, Murmurs, Orthopnea, Palpitations, Paroxysmal nocturnal dyspnea, Rheumatic Fever, Syncope Endocrine: Reports: As per HPI. Denies: Fatigue, Heat or cold intolerance, Polydipsia, Polyuria Gastrointestinal: Reports: As per HPI. Denies: Abdominal pain, Constipation, Diarrhea, Hematemesis, Hematochezia, Melena, Nausea, Vomiting Genitourinary: Reports: As per HPI. Denies: Abnormal menses, Discharge, Dyspareunia, Dysuria, Frequency, Hematuria, Incontinence, Retention, Urgency Musculoskeletal: Reports: As per HPI. Denies: Arthralgia, Back pain, Gout, Joint swelling, Myalgia, Neck pain Skin: Reports: As per HPI. Denies: Bruising, Change in color, Change in hair/ nails, Lesions, Pruritus, Rash Neurological: Reports: As per HPI. Denies: Abnormal gait, Confusion, Headache, Numbness, Paresthesias, Seizure, Tingling, Tremors, Vertigo, Weakness Psychiatric: Reports: As per HPI. Denies: Anxiety, Auditory hallucinations, Depression, Homicidal thoughts, Suicidal thoughts, Visual hallucinations Hematological/Lymphatic: Reports: As per HPI. Denies: Anemia, Blood Clots, Easy bleeding, Easy bruising, Swollen glands Past Medical History - SOCIAL HISTORY Smoking Status: Current some day smoker Alcohol Use: Heavy - RESPIRATORY Hx Respiratory Disorders: Yes Hx Bronchitis: Yes Hx COPD: Yes - CARDIOVASCULAR Hx Cardio Disorders: No Hx Hypotension: (in past) - NEURO Hx Neuro Disorders: No - GI Hx GI Disorders: Yes Hx Irritable Bowel: Yes Hx Pancreatitis: Yes - Hx Genitourinary Disorders: No - ENDOCRINE Hx Endocrine Disorders: Yes Hx Thyroid Disease: Yes (hypo) Comment:: states needs medication/inbtw doctor - MUSCULOSKELETAL Hx Musculoskeletal Disorders: Yes Hx Arthritis: Yes Hx Musculoskeletal Disease: Yes (sharco naya tooth) Comment:: numbness/tingling rle to mid thigh - PSYCH Hx Psych Problems: No Hx Anxiety: No Hx Behavior Problems: No Hx Depression: No - HEMATOLOGY/ONCOLOGY Hx Hematology/Oncology Disorders: No Hx Clotting Problems: Yes Family Medical History Any Significant Family History?: Yes Hx Stroke: Mother Physical Exam - General General Appearance: Alert, Oriented x3, Cooperative, Mild distress - Head Head exam: Normal inspection - Eye Eye exam: Normal appearance, PERRL, EOMI Pupils: Normal accommodation - ENT ENT exam: Normal exam, Mucous membranes moist, Normal external ear exam, Normal orophraynx Ear exam: Normal external inspection. negative: External canal tenderness Nasal Exam: Normal inspection. negative: Discharge, Sinus tenderness Mouth exam: Normal external inspection, Tongue normal Teeth exam: Normal inspection. negative: Dental caries Throat exam: Normal inspection. negative: Tonsillar erythema, Tonsillar exudate - Neck Neck exam: Normal inspection, Full ROM. negative: Tenderness - Respiratory Respiratory exam: Normal lung sounds bilaterally. negative: Respiratory distress - Cardiovascular Cardiovascular Exam: Regular rate, Normal rhythm, Normal heart sounds - GI/Abdominal GI/Abdominal exam: Soft, Normal bowel sounds. negative: Tenderness - Rectal Rectal exam: Deferred - exam: Deferred - Extremities Extremities exam: Joint swelling, Normal capillary refill, Pedal edema, Tenderness. negative: Normal inspection, Full ROM Image of Feet: 1 - swelling, tender, ecchymosis - Back Back exam: Reports: Normal inspection, Full ROM. Denies: Muscle spasm, Rash noted, Tenderness - Neurological Neurological exam: Alert, CN II-XII intact, Normal gait, Oriented X3 - Psychiatric Psychiatric exam: Normal affect, Normal mood - Skin Skin exam: Dry, Intact, Normal color, Warm Course Vital Signs 12/23/17 05:22 Temperature 97.7 F Pulse Rate 81 Respiratory 18 Rate Blood Pressure 112/86 Pulse Ox 98 - Reevaluation(s) Reevaluation #1: 12/23/17 06:39 d/w dr lin Disposition Disposition: Discharge Clinical Impression: Tibia fracture Qualifiers: Encounter type: initial encounter Tibia location: distal Fracture type: closed Fracture morphology: unspecified fracture morphology Laterality: left Qualified Code(s): S82.302A - Unspecified fracture of lower end of left tibia, initial encounter for closed fracture Disposition: Home, Self-Care Condition: (1) Good Instructions: Fall Prevention for Older Adults (ED), Leg Fracture (ED) Additional Instructions: follow up woth dr lin. no weight bearing until cleared by dr lin. ice and elevation. see dr lin in his office on tuesday Prescriptions: Hydrocodone/Acetaminophen [[place] 5-325 Tablet] 1 each PO Q6HR #10 tablet Referrals: ISIDORO LIN [DOCTOR OF OSTEOPATH] - [facility] Specialty Clinics [Provider Group] Forms: Patient Portal Access Quality - Quality Measures Quality Measures: N/A - Blood Pressure Screening Does Patient Have Any of the Following: No Blood Pressure Classification: Pre-Hypertensive BP Reading Systolic Measurement: 112 Diastolic Measurement: 86 Screening for High Blood Pressure: < Pre-Hypertensive BP, F/U Documented > [ G8950] Pre-Hypertensive Follow-up Interventions: Follow-up with rescreen every year.
[2017-12-23] MEDS ORDERED: HYDROCODONE/APAP 5/325MG TABLET PO ONE (06:43)
--- NOTE | 2017-12-23 06:55 | Emergency Department Record ---
History of Present Illness - General Chief Complaint: Fall Injury Stated Complaint: FALL WITH LEG INJURY Time Seen by Provider: 12/23/17 05:35 Source: Patient, EMS Mode of Arrival: EMS - History of Present Illness Onset/Timin -: Hour(s) Fall From: Down stairs (#) Fall Witnessed: No Place Fall Occurred: Home Loss of Consciousness: None Prolonged Down Time?: No Symptoms Prior to Fall: None Location - Extremities: Left: Ankle Severity scale (1-10): 10 Associated Symptoms: Unable to walk - [place] Coma Scale Eye Response: (4) Open spontaneously Motor Response: (6) Obeys commands Verbal Response: (5) Oriented Cecil Total: 15 - Related Data Home Medications Medication Instructions Recorded Confirmed Last Taken Gluc Chong/Chondro Chong A/Vit C/Mn 1 each PO BID 12/23/17 12/23/17 Unknown [Glucosamine-Chondroitin Cap] Previous Rx's Medication Instructions Recorded Ibuprofen 800 mg PO Q8HR PRN #42 tab 02/03/17 Hydrocodone/Acetaminophen [[place] 1 each PO Q6HR #10 tablet 12/23/17 5-325 Tablet] Ibuprofen [Motrin 400Mg] 400 mg PO Q6H PRN #20 tablet 12/23/17 Allergies Allergy/AdvReac Type Severity Reaction Status Date / Time amoxicillin AdvReac Mild YEAST Verified 07/19/16 00:56 INFETION Sulfa (Sulfonamide AdvReac Mild ABDOMINAL Verified 07/19/16 00:56 Antibiotics) CRAMPS Travel Screening - Travel/Exposure Within Last 30 Days Have you traveled within the last 30 days?: No - Travel Symptoms Symptom Screening: None Review of Systems Constitutional: Reports: As per HPI. Denies: Chills, Fever, Malaise, Night sweats, Weakness, Weight change Eyes: Reports: As per HPI. Denies: Eye discharge, Eye pain, Photophobia, Vision change ENT: Reports: As per HPI. Denies: Congestion, Dental pain, Ear pain, Epistaxis , Hearing loss, Throat pain Respiratory: Reports: As per HPI. Denies: Cough, Dyspnea, Hemoptysis, Stridor, Wheezes Cardiovascular: Reports: As per HPI. Denies: Arrhythmia, Chest pain, Dyspnea on exertion, Edema, Murmurs, Orthopnea, Palpitations, Paroxysmal nocturnal dyspnea, Rheumatic Fever, Syncope Endocrine: Reports: As per HPI. Denies: Fatigue, Heat or cold intolerance, Polydipsia, Polyuria Gastrointestinal: Reports: As per HPI. Denies: Abdominal pain, Constipation, Diarrhea, Hematemesis, Hematochezia, Melena, Nausea, Vomiting Genitourinary: Reports: As per HPI. Denies: Abnormal menses, Discharge, Dyspareunia, Dysuria, Frequency, Hematuria, Incontinence, Retention, Urgency Musculoskeletal: Reports: As per HPI. Denies: Arthralgia, Back pain, Gout, Joint swelling, Myalgia, Neck pain Skin: Reports: As per HPI. Denies: Bruising, Change in color, Change in hair/ nails, Lesions, Pruritus, Rash Neurological: Reports: As per HPI. Denies: Abnormal gait, Confusion, Headache, Numbness, Paresthesias, Seizure, Tingling, Tremors, Vertigo, Weakness Psychiatric: Reports: As per HPI. Denies: Anxiety, Auditory hallucinations, Depression, Homicidal thoughts, Suicidal thoughts, Visual hallucinations Hematological/Lymphatic: Reports: As per HPI. Denies: Anemia, Blood Clots, Easy bleeding, Easy bruising, Swollen glands Past Medical History - SOCIAL HISTORY Smoking Status: Current some day smoker Alcohol Use: Heavy - RESPIRATORY Hx Respiratory Disorders: Yes Hx Bronchitis: Yes Hx COPD: Yes - CARDIOVASCULAR Hx Cardio Disorders: No Hx Hypotension: (in past) - NEURO Hx Neuro Disorders: No - GI Hx GI Disorders: Yes Hx Irritable Bowel: Yes Hx Pancreatitis: Yes - Hx Genitourinary Disorders: No - ENDOCRINE Hx Endocrine Disorders: Yes Hx Thyroid Disease: Yes (hypo) Comment:: states needs medication/inbtw doctor - MUSCULOSKELETAL Hx Musculoskeletal Disorders: Yes Hx Arthritis: Yes Hx Musculoskeletal Disease: Yes (sharco naya tooth) Comment:: numbness/tingling rle to mid thigh - PSYCH Hx Psych Problems: No Hx Anxiety: No Hx Behavior Problems: No Hx Depression: No - HEMATOLOGY/ONCOLOGY Hx Hematology/Oncology Disorders: No Hx Clotting Problems: Yes Family Medical History Any Significant Family History?: Yes Hx Stroke: Mother Physical Exam - General Limitations: No limitations Course Vital Signs 12/23/17 12/23/17 05:22 06:22 Temperature 97.7 F Pulse Rate 81 Pulse Rate [ 77 Pulse Ox Probe] Respiratory 18 24 Rate Blood Pressure 112/86 Blood Pressure 115/73 [Left Arm] Pulse Ox 98 93 L Disposition Clinical Impression: Tibia fracture Qualifiers: Encounter type: initial encounter Tibia location: distal Fracture type: closed Fracture morphology: unspecified fracture morphology Laterality: left Qualified Code(s): S82.302A - Unspecified fracture of lower end of left tibia, initial encounter for closed fracture Disposition: Home, Self-Care Condition: (1) Good Instructions: Leg Fracture (ED), Fall Prevention for Older Adults (ED) Additional Instructions: follow up woth dr lin. no weight bearing until cleared by dr lin. ice and elevation. see dr lin in his office on tuesday Prescriptions: Hydrocodone/Acetaminophen [[place] 5-325 Tablet] 1 each PO Q6HR #10 tablet Ibuprofen [Motrin 400Mg] 400 mg PO Q6H PRN #20 tablet PRN Reason: Pain - Moderate (5-7) Referrals: [facility] Specialty Clinics [Provider Group] ISIDORO LIN [DOCTOR OF OSTEOPATH] - Forms: Patient Portal Access Quality - Quality Measures Quality Measures: N/A - Blood Pressure Screening Does Patient Have Any of the Following: No Blood Pressure Classification: Pre-Hypertensive BP Reading Systolic Measurement: 112 Diastolic Measurement: 86 Screening for High Blood Pressure: < Pre-Hypertensive BP, F/U Documented > [ G8950] Pre-Hypertensive Follow-up Interventions: Follow-up with rescreen every year.
--- NOTE | 2017-12-24 13:26 | RADIOLOGY REPORT ---
DATE: 12/24/2017. EXAM: LEFT ANKLE. HISTORY: Pain. TECHNIQUE: Four views of the left ankle. COMPARISON: None. FINDINGS: Osteopenia. Comminuted fracture of the distal tibial metaphysis. Associated soft tissue swelling. No definitive fibula fracture. There is an old fracture deformity of the proximal fibula. There is no widening of the ankle mortis. IMPRESSION: 1. COMMINUTED DISTAL TIBIA FRACTURE WITH SOFT TISSUE SWELLING. 2. OSTEOPENIA. JOB NUMBER: [id number] [facility]
== END 2017-12-23 07:52 | disposition home or self-care (01) ==
LOC: ER 05:12
DX: S82.302A Unspecified fracture of lower end of left tibia, initial encounter for closed fracture (principal); W17.89XA Other fall from one level to another, initial encounter; Y92.008 Other place in unspecified non-institutional (private) residence as the place of occurrence of the external cause; F17.210 Nicotine dependence, cigarettes, uncomplicated; G60.0 Hereditary motor and sensory neuropathy; E03.9 Hypothyroidism, unspecified
CPT/HCPCS: 29515; 99284

== ENCOUNTER 2018-03-15 00:27 | Emergency (ER) | payer BC, MEDICAID ==
--- NOTE | 2018-03-15 00:40 | Emergency Department Record ---
History of Present Illness - General Chief Complaint: Fall Injury Stated Complaint: ETOH/FALL Time Seen by Provider: 03/15/18 00:31 Source: Patient Mode of Arrival: EMS Limitations: No limitations - History of Present Illness Initial Comments: 57 yo female presents after a fall at home. She denies any loss of consciousness. She states she recalls the events. She tripped over her cat. She has a history of daily alcohol use/abuse, MS, recent ankle fracture in December due to a fall. She used her life alert to get assistance. EMS found to be intoxicated clinically and unstable on her feet. The patient states she fell face first. She has swelling and abrasions of the nose, right arm. She normally gets around with a scooter or ambulates when sober. Her balance issues are chronic. She was able scoot to the front door and open it for EMS. MD Complaint: Fall -: Minutes(s) Fall From: Standing When Fall Occurred: Just prior to arrival Fall Witnessed: No Place Fall Occurred: Home Loss of Consciousness: None Prolonged Down Time?: No (1-2 hours before pushing her alert) Symptoms Prior to Fall: None Location: Face Location - Extremities: Right: Arm Severity: Moderate Quality: Other Associated Symptoms: Denies - Cecil Coma Scale Eye Response: (4) Open spontaneously Motor Response: (6) Obeys commands Verbal Response: (5) Oriented [place] Total: 15 - Related Data Allergies Allergy/AdvReac Type Severity Reaction Status Date / Time amoxicillin AdvReac Mild YEAST Verified 03/15/18 00:31 INFETION Sulfa (Sulfonamide AdvReac Mild ABDOMINAL Verified 03/15/18 00:31 Antibiotics) CRAMPS Review of Systems Constitutional: Denies: Chills, Fever, Malaise, Weakness Eyes: Denies: Eye discharge ENT: Denies: Congestion, Throat pain Respiratory: Denies: Cough Cardiovascular: Denies: Chest pain, Syncope Endocrine: Denies: Fatigue Gastrointestinal: Denies: Abdominal pain, Diarrhea, Nausea, Vomiting Genitourinary: Denies: Dysuria, Urgency Musculoskeletal: Reports: As per HPI, Arthralgia Skin: Reports: As per HPI, Bruising Neurological: Reports: Abnormal gait (chronic), Weakness. Denies: Confusion, Headache, Numbness, Seizure, Tingling Psychiatric: Denies: Anxiety Hematological/Lymphatic: Reports: Easy bleeding, Easy bruising Past Medical History - SOCIAL HISTORY Smoking Status: Current some day smoker - RESPIRATORY Hx Respiratory Disorders: Yes Hx Bronchitis: Yes Hx COPD: Yes - CARDIOVASCULAR Hx Cardio Disorders: No Hx Hypotension: (in past) - NEURO Hx Neuro Disorders: No - GI Hx GI Disorders: Yes Hx Irritable Bowel: Yes Hx Pancreatitis: Yes - Hx Genitourinary Disorders: No - ENDOCRINE Hx Endocrine Disorders: Yes Hx Thyroid Disease: Yes (hypo) Comment:: states needs medication/inbtw doctor - MUSCULOSKELETAL Hx Musculoskeletal Disorders: Yes Hx Arthritis: Yes Hx Musculoskeletal Disease: Yes (sharco naya tooth) Comment:: numbness/tingling rle to mid thigh - PSYCH Hx Psych Problems: No Hx Anxiety: No Hx Behavior Problems: No Hx Depression: No - HEMATOLOGY/ONCOLOGY Hx Hematology/Oncology Disorders: No Hx Clotting Problems: Yes Family Medical History Hx Stroke: Mother Physical Exam - General General Appearance: Alert, Oriented x3, Cooperative - Head Head exam: negative: Atraumatic, Normal inspection Head exam detail: Abrasion, Contusion. negative: Hematoma, Laceration Image of Face/Head: 1 - abrasion, swelling, - Eye Eye exam: Normal appearance. negative: Conjunctival injection - ENT ENT exam: Normal exam, Mucous membranes moist Ear exam: Normal external inspection Nasal Exam: Dried blood. negative: Normal inspection Mouth exam: Normal external inspection Teeth exam: Other (no teeth) Throat exam: Normal inspection - Neck Neck exam: Normal inspection, Full ROM. negative: Tenderness - Respiratory Respiratory exam: Normal lung sounds bilaterally. negative: Respiratory distress, Rhonchi, Stridor, Wheezes - Cardiovascular Cardiovascular Exam: Regular rate, Normal rhythm, Normal heart sounds Peripheral Pulses: 2+: Radial (R), Radial (L) - GI/Abdominal GI/Abdominal exam: Soft. negative: Distended, Guarding, Rebound, Rigid, Tenderness - Rectal Rectal exam: Deferred - exam: Deferred - Extremities Extremities exam: Normal capillary refill, Tenderness - Back Back exam: Denies: CVA tenderness (R), CVA tenderness (L), Paraspinal tenderness , Tenderness Image of Body Front/Back: 1 - abrasions, skin tears, superficial, full ROM, non tender 2 - tenderness and swelling, intact skin - Neurological Neurological exam: Alert, Oriented X3. negative: Motor sensory deficit - Psychiatric Psychiatric exam: negative: Agitated, Normal affect - Skin Skin exam: Abrasion Course - Reevaluation(s) Reevaluation #1: The labs were reviewed K is 2.9 No changes on the CBC The ETOH is .369 03/15/18 01:23 03/15/18 01:29 HCT: Left Nasal bone fracture Cervical Spine: No definite acute fracture 03/15/18 01:42 Subacute to chronic distal tibial fracture. 03/15/18 06:13 The patient continues to do well. No complaints. She has been up to the restroom several times. She is stable. No confusion. She has a reliable ride. She is stable for DC. Medical Decision Making - Lab Data Result diagrams: 03/15/18 00:48 03/15/18 00:48 Disposition Disposition: Discharge Clinical Impression: Hypokalemia Alcohol intoxication Qualifiers: Complication of substance-induced condition: uncomplicated Qualified Code(s): F10.920 - Alcohol use, unspecified with intoxication, uncomplicated Nasal bone fracture Qualifiers: Encounter type: initial encounter Fracture type: closed Qualified Code(s): S02.2XXA - Fracture of nasal bones, initial encounter for closed fracture Disposition: Home, Self-Care Condition: (1) Good Instructions: Nasal Fracture (ED), Hypokalemia (ED), Alcohol Intoxication (ED) Additional Instructions: Avoid excessive alcohol Ice to the nose to minimize swelling Follow up with your doctor. Call for the next available appointment Return if you have any pain, new concerns or symptoms. Forms: Patient Portal Access Time of Disposition: 06:14 Quality - Quality Measures Quality Measures: N/A, Blunt Head Trauma (>2yr) - [place] Coma Scale Cecil Coma Scale: Cecil Coma Scale Eye Response: (4) Open spontaneously Motor Response: (6) Obeys commands Verbal Response: (5) Oriented [place] Total: 15 - Blunt Head Trauma - Adult Quality Measure: Measure #415: Utilization of CT for Minor Blunt Head Trauma ICD10 Codes Entered: Yes Was CT ordered: Yes Does Patient Have Any of the Following: No Exclusions Patient Presented Within 24 Hours of Injury: Yes Cecil Score: [address] for Minor Blunt Head Trauma: < CT Done, Appropriate Indication > [G9529] Additional Inclusion Criteria: Within 24hrs (AND) GCS of 15 (AND) CT ordered. [ G9530] Indications For CT: Drug/Alcohol Intoxication w/Loss of Consciousness - Blood Pressure Screening Does Patient Have Any of the Following: No Blood Pressure Classification: Normal BP Reading Systolic Measurement: 92 Diastolic Measurement: 72 Screening for High Blood Pressure: < Normal BP, F/U Not Required > [G8783]
[2018-03-15 00:56] LABS: BASO % 0.4 % (0-6); EOS % 2.7 % (0-6); GRAN % 38.4 % (47-80); HEMATOCRIT 38.7 % (35.0-47.0); HEMOGLOBIN 12.9 gm/dl (11.6-16.0); LYMPH % 47.6 % (16-45); MEAN CELL VOLUME 105.4 fl (81-97); MEAN CORPUSCULAR HEMOGLOBIN 35.1 pg (27-33); MEAN CORPUSCULAR HGB CONC 33.3 g/dl (32-36); MEAN PLATELET VOLUME 10.8 fl (7.4-10.4); MONO % 10.9 % (0-9); PLATELET COUNT 143 K/uL (130-400); RED BLOOD COUNT 3.67 M/uL (3.80-5.40); RED CELL DISTRIBUTION WIDTH 17.7 % (11.5-14.5); WHITE BLOOD COUNT W/O DIFF 4.5 K/uL (4.2-12.2)
[2018-03-15 01:08] LABS: BLOOD UREA NITROGEN 5 mg/dL (6-20); CREATININE 0.5 mg/dL (0.5-0.9); EST GLOMERULAR FILTRATION RATE > 60 mL/min; INR 1.1; PARTIAL THROMBOPLASTIN TIME 27.4 SECONDS (24.5-39.1)
[2018-03-15 01:09] LABS: ALCOHOL 0.369 g/dL (0-0.010); TOTAL PROTEIN 6.6 g/dL (6.6-8.7)
[2018-03-15 01:11] LABS: GLUCOSE,RANDOM 124 mg/dL (74-109)
[2018-03-15 01:14] LABS: ALB/GLOB RATIO 1.8 (1.1-1.8); ALBUMIN 4.2 g/dL (4.0-5.0); ALKALINE PHOSPHATASE 150 U/L (35-104); ALT/SGPT 32 U/L (<33); AST/SGOT 52 U/L (10.0-35.0)
[2018-03-15] MEDS ORDERED: SOD CHLOR 0.9% WITH KCL 40MEQ 40 MEQ/1,000 ML IV.SOLN IV ONE (01:23)
--- NOTE | 2018-03-17 13:47 | RADIOLOGY REPORT ---
EXAM: LEFT ANKLE HISTORY: FOLLOW-UP LEFT ANKLE FRACTURE, PATIENT FELL. TECHNIQUE: Four views of the left ankle were obtained. A preliminary report was provided by [facility]. Comparison: Left ankle series 12/23/17. Encounter: Initial. FINDINGS: Some diffuse osteopenia is seen likely representing some disuse osteoporosis. There is a healing oblique fracture of the distal tibial metaphysis with progressive bony callus compared to the prior study. When comparison is made to the prior exam, no definite new fracture line is seen and no dislocation is apparent. Reduction in soft tissue swelling particularly medially compared with the prior 12/23/17 exam. Some deformity of the shaft of the fifth metatarsal partially seen on the lateral view, also apparent on a prior left foot series of 12/01/17 consistent with an old healed fracture. IMPRESSION: 1. HEALING DISTAL METAPHYSEAL TIBIAL FRACTURE WITH PROGRESSIVE BONY CALLUS SINCE 12/23/17. THE FRACTURE LINE IS STILL VISIBLE. 2. 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 3. NO DEFINITE ACUTE FRACTURE OR DISLOCATION OF THE LEFT ANKLE EVIDENT. 4. OLD FRACTURE DEFORMITY FIFTH METATARSAL. JOB NUMBER: [id number] [facility]
--- NOTE | 2018-03-17 14:24 | CT SCAN REPORT ---
EXAM: HEAD CT WITHOUT CONTRAST HISTORY: PATIENT FELL AND HIT NOSE WITH NOSEBLEED. TECHNIQUE: Axial CT scan of the head was performed without IV contrast. A preliminary report was provided by [facility]. Comparison: No prior head CT with which to compare. Encounter: Initial. FINDINGS: No definite acute intracranial hemorrhage identified. No focal mass effect or midline shift apparent. Mild generalized atrophy is present. No definite acute infarct or intracranial mass lesion is seen. There is probably a small fracture of the left side of the nasal bone. IMPRESSION: 1. NO DEFINITE ACUTE INTRACRANIAL HEMORRHAGE OR FOCAL MASS EFFECT IDENTIFIED. 2. MILD GENERALIZED ATROPHY. 3. THERE IS PROBABLY A SMALL LEFT SIDED NASAL BONE FRACTURE. CORRELATION WITH PHYSICAL EXAM SUGGESTED. JOB NUMBER: [id number] [facility]
--- NOTE | 2018-03-17 14:29 | CT SCAN REPORT ---
EXAM: EMERGENCY CT SCAN OF THE CERVICAL SPINE HISTORY: PATIENT FELL TONIGHT WITH BLOODY NOSE, ETOH. 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 TECHNIQUE: Axial CT scan of the cervical spine was performed without IV contrast. A preliminary report was provided by [facility]. Comparison: No prior cervical study with which to compare. Encounter: Initial. FINDINGS: This study is limited by a combination of some patient motion artifact and also tilting of the head to the right. There is apical bullous disease consistent with emphysema. There is rotation at the C1-C2 level. Allowing for the rotation and blurring artifact, no definite acute fracture of the cervical spine identified and no prevertebral soft tissue swelling is evident. There is multilevel degenerative change with narrowing particularly of the fifth and sixth cervical interspaces with associated hypertrophic spurring. Multilevel facet joint arthropathy is present as well. There is multilevel foraminal stenosis in the cervical spine. There is slight anterior subluxation of C4 on C5 which appears to be on a degenerative basis related to prominent facet joint arthropathy at this level. There is some loss of the normal cervical lordosis likely due to positioning or spasm. IMPRESSION: 1. THIS STUDY IS LIMITED BY ROTATION AND MOTION/BLURRING ARTIFACT. 2. NO DEFINITE FRACTURE OR PREVERTEBRAL SOFT TISSUE SWELLING EVIDENT. 3. LOSS OF LORDOSIS LIKELY DUE TO POSITIONING OR SPASM. 4. MULTILEVEL DEGENERATIVE CHANGE IN THE CERVICAL SPINE WITH MULTILEVEL FORAMINAL STENOSIS AND SLIGHT ANTERIOR SUBLUXATION OF C4 ON C5 WHICH ALSO APPEARS TO BE ON A DEGENERATIVE BASIS. JOB NUMBER: [id number] [facility]
== END 2018-03-15 06:40 | disposition home or self-care (01) ==
LOC: ER 00:27
DX: S02.2XXA Fracture of nasal bones, initial encounter for closed fracture (principal); S50.811A Abrasion of right forearm, initial encounter; M79.672 Pain in left foot; E87.6 Hypokalemia; F10.920 Alcohol use, unspecified with intoxication, uncomplicated; Y90.8 Blood alcohol level of 240 mg/100 ml or more; G35 Multiple sclerosis; F17.210 Nicotine dependence, cigarettes, uncomplicated; W18.09XA Striking against other object with subsequent fall, initial encounter; Y92.009 Unspecified place in unspecified non-institutional (private) residence as the place of occurrence of the external cause
CPT/HCPCS: 99284 ×2; 96374; 85025; 85730; 85610; 80053; 73610; 72125; 70450; G0480; 80320

== ENCOUNTER 2019-05-14 08:53 | Emergency (ER) | payer BC, MEDICAID ==
--- NOTE | 2019-05-14 09:44 | Emergency Department Record ---
History of Present Illness - General Chief Complaint: Laceration(s) Stated Complaint: LAC ON LEG Time Seen by Provider: 05/14/19 09:10 Source: Patient Mode of Arrival: Ambulatory Limitations: No limitations - History of Present Illness Initial Commments: The patient is here due to cutting her L anterior lower leg accidentally with trimming magalie last night 10 hours ago. She did not think it was as bad as it was. Her Td is UTD. She denies any pain with walking or any lower leg numbness. Onset/Timin -: Hour(s) Place: Home Context: Accidental Associated Symptoms: None - Cecil Coma Scale Eye Response: (4) Open spontaneously Motor Response: (6) Obeys commands Verbal Response: (5) Oriented [place] Total: 15 - Related Data Hx Tetanus Toxoid Vaccination: Yes Year of Tetanus Vaccination: 2014 Patient Tetanus UTD (within 5 yrs): Yes Previous Rx's Medication Instructions Recorded Cephalexin [Keflex] 500 mg PO TID #21 cap 05/14/19 Ibuprofen [Motrin] 800 mg PO TID PRN #20 tab 05/14/19 Allergies Allergy/AdvReac Type Severity Reaction Status Date / Time amoxicillin AdvReac Mild YEAST Verified 05/14/19 08:59 INFETION Sulfa (Sulfonamide AdvReac Mild ABDOMINAL Verified 05/14/19 08:59 Antibiotics) CRAMPS Travel Screening - Travel/Exposure Within Last 30 Days Have you traveled within the last 30 days?: No Review of Systems Constitutional: Denies: Chills, Fever Past Medical History - SOCIAL HISTORY Smoking Status: Current some day smoker Alcohol Use: Heavy Drug Use: None - RESPIRATORY Hx Respiratory Disorders: Yes Hx Bronchitis: Yes Hx COPD: Yes - CARDIOVASCULAR Hx Cardio Disorders: No Hx Hypotension: (in past) - NEURO Hx Neuro Disorders: No - GI Hx GI Disorders: Yes Hx Irritable Bowel: Yes Hx Pancreatitis: Yes - Hx Genitourinary Disorders: No - ENDOCRINE Hx Endocrine Disorders: Yes Hx Thyroid Disease: Yes (hypo) - MUSCULOSKELETAL Hx Musculoskeletal Disorders: Yes Hx Arthritis: Yes Hx Musculoskeletal Disease: Yes (sharco naya tooth) - PSYCH Hx Psych Problems: No Hx Anxiety: No Hx Behavior Problems: No Hx Depression: No - HEMATOLOGY/ONCOLOGY Hx Hematology/Oncology Disorders: Yes Hx Clotting Problems: Yes Family Medical History Any Significant Family History?: Yes Hx Stroke: Mother Physical Exam - General General Appearance: Alert, Oriented x3, Cooperative, No acute distress - Head Head exam: Atraumatic - Eye Eye exam: Normal appearance - Extremities Extremities exam: Full ROM. negative: Normal inspection (There is a 3.5 cm laceration to the mid L anterior lower leg. The distal lower leg and foot are NVI.), Tenderness (There is no bony tenderness to palpation. She is up walking with no discomfort.) Image of Full Body: 1 - Area of lac. - Neurological Neurological exam: Alert. negative: Motor sensory deficit Course Vital Signs 05/14/19 09:00 Temperature 98.1 F Pulse Rate 65 Respiratory 18 Rate Blood Pressure 128/67 Pulse Ox 96 - Reevaluation(s) Reevaluation #1: I did discuss the age of the laceration and due to it being 10 hours suturing it now would increase her infection risk. The patient understands and accepts the risks of suturing it 10 hours after the laceration occurred. 05/14/19 09:41 Reevaluation #2: Procedure note: The L leg laceration was anesth. with 3 cc's Lido 1%. The wound edges were debrided due to having some devitalized tissue present. The laceration was then copiously irrigated with sterile saline and closed with 8 4.0 nylon sutures. There were no complications. 05/14/19 09:42 Disposition Disposition: Discharge Clinical Impression: Laceration of leg Qualifiers: Encounter type: initial encounter Laterality: left Qualified Code(s): S81.812A - Laceration without foreign body, left lower leg, initial encounter Disposition: Home, Self-Care Condition: (2) Stable Instructions: Laceration (ED) Additional Instructions: Please keep dry for 2 days then no soaking or swimming. PLease take the Keflex as directed. Have the sutures removed in 2 weeks. Return to the ER for any signs of any infection. Prescriptions: Cephalexin [Keflex] 500 mg PO TID #21 cap Ibuprofen [Motrin] 800 mg PO TID PRN #20 tab PRN Reason: Pain Forms: Patient Portal Access Time of Disposition: 09:45 Quality - Quality Measures Quality Measures: N/A - Blood Pressure Screening View Details: Yes Does Patient Have Any of the Following: No Blood Pressure Classification: Pre-Hypertensive BP Reading Systolic Measurement: 128 Diastolic Measurement: 67 Screening for High Blood Pressure: < Pre-Hypertensive BP, F/U Documented > [G 8950] Pre-Hypertensive Follow-up Interventions: Referral to alternative/primary care provider.
== END 2019-05-14 09:57 | disposition home or self-care (01) ==
LOC: ER 08:53
DX: S81.812A Laceration without foreign body, left lower leg, initial encounter (principal); W27.2XXA Contact with scissors, initial encounter; Y92.009 Unspecified place in unspecified non-institutional (private) residence as the place of occurrence of the external cause
CPT/HCPCS: 12002; 99283

== ENCOUNTER 2019-05-28 11:21 | Emergency (ER) | payer BC, MEDICAID ==
--- NOTE | 2019-05-28 11:31 | Emergency Department Record ---
History of Present Illness - General Chief Complaint: Suture removal Stated Complaint: SUTURE REMOVAL Time Seen by Provider: 05/28/19 11:31 Source: Patient Mode of arrival: Ambulatory Limitations: No limitations - History of Present Illness Initial Comments: The patient is here for suture removal. She denies any problems. Complaint: Suture/staple removal Onset/Timin -: Week(s) Returns Today for: Staple/stitch removal Symptoms Since Prior Visit: No new symptoms Associated Symptoms: None - Related Data Previous Rx's Medication Instructions Recorded Ibuprofen [Motrin] 800 mg PO TID PRN #20 tab 05/14/19 Allergies Allergy/AdvReac Type Severity Reaction Status Date / Time amoxicillin AdvReac Mild YEAST Verified 05/28/19 11:30 INFETION Sulfa (Sulfonamide AdvReac Mild ABDOMINAL Verified 05/28/19 11:30 Antibiotics) CRAMPS Travel Screening - Travel/Exposure Within Last 30 Days Have you traveled within the last 30 days?: No - Travel/Exposure Within Last Year Have you traveled outside the [place] in the last year?: No - Additonal Travel Details Have you been exposed to anyone with a communicable illness?: No Past Medical History - SOCIAL HISTORY Smoking Status: Current some day smoker Alcohol Use: None Alcohol Use Comment: not currently Drug Use: None - RESPIRATORY Hx Respiratory Disorders: Yes Hx Bronchitis: Yes Hx COPD: Yes - CARDIOVASCULAR Hx Cardio Disorders: No Hx Hypotension: (in past) - NEURO Hx Neuro Disorders: No - GI Hx GI Disorders: Yes Hx Irritable Bowel: Yes Hx Pancreatitis: Yes - Hx Genitourinary Disorders: No - ENDOCRINE Hx Endocrine Disorders: Yes Hx Thyroid Disease: Yes (hypo) - MUSCULOSKELETAL Hx Musculoskeletal Disorders: Yes Hx Arthritis: Yes Hx Musculoskeletal Disease: Yes (sharco naya tooth) - PSYCH Hx Psych Problems: No Hx Anxiety: No Hx Behavior Problems: No Hx Depression: No - HEMATOLOGY/ONCOLOGY Hx Hematology/Oncology Disorders: Yes Hx Clotting Problems: Yes Family Medical History Any Significant Family History?: No Hx Stroke: Mother Physical Exam - General General Appearance: Alert, Oriented x3, Cooperative, No acute distress - Extremities Extremities exam: Normal inspection (The L leg wound is very well healed. The sutures were removed without difficulty.) Course Vital Signs 05/28/19 11:22 Temperature 97.6 F Pulse Rate 68 Respiratory 16 Rate Blood Pressure 153/87 Pulse Ox 99 Disposition Disposition: Discharge Clinical Impression: Encounter for removal of sutures Disposition: Home, Self-Care Condition: (2) Stable Instructions: Stitches Removal (ED) Additional Instructions: Return to the ER for any problems. Forms: Patient Portal Access Time of Disposition: 11:37 Quality - Quality Measures Quality Measures: N/A - Blood Pressure Screening View Details: Yes Does Patient Have Any of the Following: No Blood Pressure Classification: Pre-Hypertensive BP Reading Systolic Measurement: 153 Diastolic Measurement: 87 Screening for High Blood Pressure: < Pre-Hypertensive BP, F/U Documented > [G8950] Pre-Hypertensive Follow-up Interventions: Referral to alternative/primary care provider.
== END 2019-05-28 11:43 | disposition home or self-care (01) ==
LOC: ER 11:21
DX: Z48.02 Encounter for removal of sutures (principal)